=== PATIENT | female | born 1940 | race Caucasian/White ===

== ENCOUNTER → 2019-04-28 | Outpatient (CLI) | payer MEDICARE ==
[~2019-04-28] MED LIST: CONTRAST GIVEN. MC PRN; IOHEXOL 300 MG/ML 50 ML VIAL. PO ONE
--- NOTE | 2019-04-28 13:57 | RAD ---
CT abdomen pelvis with oral contrast only Indication: Left lower quadrant pain for 2 months Technique: Noncontrast CT imaging was performed of the abdomen pelvis, multiplanar reconstruction images submitted. Oral contrast was given. One or more of the following individualized dose reduction techniques were utilized for this examination: 1. Automated exposure control 2. Adjustment of the mA and/or kV according to patient size 3. Use of iterative reconstruction technique. Comparison: None Findings: There is some motion degradation. There is some coronary calcification. Accurate evaluation of the abdominal visceral organs is limited without intravenous contrast, no obvious focal abnormality of the liver, spleen, pancreas allowing for noncontrast technique. There is no adrenal nodularity. There has been cholecystectomy. There is no hydronephrosis or renal calculus. Nondilated ureters are poorly distinguished in the pelvis. There are some phleboliths present. Bowel is not significantly dilated. There is prominent retained stool greatest of the ascending through transverse colon. Appendix is dilated about 0.9 cm with some internal stool density present, no adjacent inflammatory-type change. There is advanced degenerative disc disease at L4-5 and to lesser degree at L3-4. There is multilevel facet hypertrophic change. There is suspected moderate to severe spinal stenosis L3-4, also degree of lateral recess stenosis bilaterally at L4-5 and L5-S1. There is moderate to severe narrowing of the bilateral L4-5 neural foramen in part by facets. IMPRESSION: 1. There is prominent retained stool greatest of the ascending and transverse colon, no significant inflammatory type change about the bowel. While the appendix is dilated about 0.9 cm, there is internal stool density present and there is no adjacent inflammatory-type change to confidently suggest acute appendicitis. Nondilated ureters are poorly seen in the pelvis, no hydronephrosis or renal calculus. 2. There is lumbar degenerative disc disease greatest at L4-5 and to lesser degree at L3-4. There is suspected moderate to severe spinal stenosis L3-4, other variable lateral recess stenosis. There is bilateral L4-5 neural foramina compromise. Electronically signed by: Jimbo Vitale MD (04/28/2019 1:54 PM) [email or web address]
== END | disposition home or self-care (01) ==
LOC: CT 09:50
PROVIDERS: ATTEND Family Medicine
DX: I87.8 Other specified disorders of veins (principal); I25.10 Atherosclerotic heart disease of native coronary artery without angina pectoris; K59.00 Constipation, unspecified; M51.36 Other intervertebral disc degeneration, lumbar region; M89.38 Hypertrophy of bone, other site; M48.061 Spinal stenosis, lumbar region without neurogenic claudication; Z90.49 Acquired absence of other specified parts of digestive tract
CPT/HCPCS: 74176

== ENCOUNTER → 2019-10-20 | Outpatient (CLI) | payer MEDICARE ==
--- NOTE | 2019-10-20 13:51 | KCIC ---
RS Compliance Statement: One or more of the following individualized dose reduction techniques were utilized for this examination: 1. Automated exposure control 2. Adjustment of the mA and/or kV according to patient size 3. Use of iterative reconstruction technique CT head without contrast 10/20/2019 1:14 PM INDICATION: Confusion, memory changes COMPARISON: None available TECHNIQUE: Multiple axial CT images of the head were obtained from skull base through the vertex without intravenous contrast. FINDINGS: Head: Ventricles, sulci and basal cisterns are within normal limits. There is no hydrocephalus. Giraldo-white matter differentiation is normal. There is no acute intracranial hemorrhage. There is no mass, mass effect or midline shift. Posterior fossa is normal in appearance. Visualized portions of the orbits are normal with exception of left lens replacement. Minimal mucosal thickening in the right sphenoid sinus. Mastoid air cells are well aerated. Scalp and calvaria are normal. IMPRESSION: No acute intracranial hemorrhage. Electronically signed by: Amanda Acosta MD (10/20/2019 1:48 PM) [email or web address]
== END | disposition home or self-care (01) ==
LOC: KCIC CT 13:06
PROVIDERS: ATTEND Family Medicine
DX: J34.89 Other specified disorders of nose and nasal sinuses (principal); R41.0 Disorientation, unspecified
CPT/HCPCS: 70450

== ENCOUNTER 2020-11-15 10:46 | Inpatient (IN) | payer MEDICARE ==
[~2020-11-15] VITALS: Ht 152.4 cm; Wt 72.6 kg
[2020-11-15] MEDS ORDERED: IV NORMAL SALINE 1000ML BAG 1,000 ML IV ONE ×2 (11:45→16:00)
[2020-11-15 11:58] LABS: BASO % 1 % (0-3); EOS # 0.1 x10^3/uL (0.0-0.7); EOS % 2 % (0-3); HEMATOCRIT 38.9 % (36.0-47.0); HEMOGLOBIN 13.5 g/dL (12.0-15.5); LYMPH # 1.1 x10^3/uL (1.0-4.8); LYMPH % 24 % (24-48); MEAN CORPUSCULAR HEMOGLOBIN 33 pg (25-35); MEAN CORPUSCULAR HGB CONC 35 g/dL (31-37); MEAN CORPUSCULAR VOLUME 93 fL (79-100); MONO # 0.3 x10^3/uL (0.0-1.1); MONO % 8 % (0-9); NEUT # 2.9 x10^3/uL (1.8-7.7); NEUT % 66 % (31-73); PLATELET COUNT 264 x10^3/uL (140-400); RED BLOOD COUNT 4.17 x10^6/uL (3.50-5.40); RED CELL DISTRIBUTION WIDTH 13.3 % (11.5-14.5); WHITE BLOOD COUNT 4.4 x10^3/uL (4.0-11.0)
--- NOTE | 2020-11-15 12:03 | PHYS DOC ---
Past Medical History Past Medical History: Anxiety, Depression, Fibromyalgia, Glaucoma, Hypothyroid, Other Additional Past Medical Histor: "MENTAL HEALTH/PSYCHOTIC EPISODES" PER DAUGHTER Past Surgical History: Other Additional Past Surgical Histo: UNKNOWN Smoking Status: Never Smoker Alcohol Use: None General Adult EDM: Chief Complaint: HALLUCINATIONS AUDIBLE/VISUAL HPI: HPI: Patient is a 80 year old female who who presents with CC catatonic episodes. Hx from daughter who is bedside and cares for the Pt. Daughter describes daily catatonic episodes/bradykinesia that have increased in frequency over the past two weeks. Pt has been eating and drinking fluids minimally despite daughters best efforts. Daughter also describes generalized cognitive decline over the past two weeks. Pt has not "made any sense" verbally for the past week per daughter. Pt does have a hx of depression but the movement symptoms have never happened before. The Pt's has had some recent health problems and daughter does think that this is contributing. Pt follows with psychiatry. No resting/intention tremors per daughter. Review of Systems: Review of Systems: Constitutional: Denies fever or chills Eyes: Denies redness or eye pain HENT: Denies nasal congestion or sore throat Respiratory: Denies cough or shortness of breath Cardiovascular: Denies chest pain or palpitations GI: Denies abdominal pain, nausea, or vomiting : Denies dysuria or hematuria Musculoskeletal: Denies back pain or joint pain Integument: Denies rash or skin lesions Neurologic: Denies headache, focal weakness or sensory changes Complete systems were reviewed and found to be within normal limits, except as documented in this note. Heart Score: Risk Factors: Risk Factors: DM, Current or recent (<one month) smoker, HTN, HLP, family history of CAD, obesity. Risk Scores: Score 0 - 3: 2.5% MACE over next 6 weeks - Discharge Home Score 4 - 6: 20.3% MACE over next 6 weeks - Admit for Clinical Observation Score 7 - 10: 72.7% MACE over next 6 weeks - Early Invasive Strategies Current Medications: Current Medications Medications (Trade) Dose Ordered Sig/Álvaro Start Time Stop Time Status Last Admin Dose Admin Sodium Chloride 1,000 ml @ 1,000 mls/hr 1X ONCE 11/15/20 11:45 11/15/20 12:44 Allergies: Allergies: Allergies Coded Allergies Type Severity Reaction Last Updated Verified No Known Drug Allergies 04/28/19 No Physical Exam: PE: Constitutional: Well developed, well nourished, no acute distress, non-toxic appearance HENT: Normocephalic, atraumatic, Mucous membranes dry Eyes: PERRL, EOMI, conjunctiva normal, Neck: Normal range of motion, no tenderness, supple Lungs & Thorax: No respiratory distress, equal chest rise and fall Abdomen: Soft, no tenderness Skin: Warm, dry, no erythema, no rash Back: No tenderness, no CVA tenderness Extremities: No tenderness, ROM intact, no edema Neurologic: Alert and oriented X 1, Psychologic: Inhibited affect Current Patient Data: Vital Signs: Vital Signs Date Time Temp Pulse Resp B/P (MAP) Pulse Ox O2 Delivery O2 Flow Rate FiO2 11/15/20 10:57 97.9 81 24 170/72 (104) 100 Room Air 97.9 EKG: EKG: Sinus Rhythm. Left [place] Deviation. QTc:481[] Radiology/Procedures: Radiology/Procedures: PROCEDURE: CHEST AP ONLY EXAM: XR CHEST 1V 11/15/2020 2:08 PM CLINICAL INDICATION: Altered mental status COMPARISON: None TECHNIQUE: AP supine view of the chest FINDINGS: The heart and mediastinum are normal. There are calcifications in the thoracic aorta. Lungs are adequately expanded. No focal opacity, pleural effusion, or pneumothorax. No acute osseous abnormality. IMPRESSION: No acute cardiopulmonary abnormality. Electronically signed by: Hallie Strong MD (11/15/2020 2:37 PM) [id number] PROCEDURE: CT HEAD WO CONTRAST EXAM: CT head without contrast INDICATION: Altered mental status COMPARISON: CT head 10/20/2019 TECHNIQUE: Axial CT imaging through the head without intravenous contrast. One or more of the following individualized dose reduction techniques were utilized for this examination: 1. Automated exposure control 2. Adjustment of the mA and/or kV according to patient size 3. Use of iterative reconstruction technique. FINDINGS: The ventricles and sulci are mildly enlarged, reflecting age-related volume loss. Kaufman-white matter differentiation is maintained. There is no intracranial hemorrhage, acute infarct, or mass lesion. Basal cisterns are clear. The skull and scalp are intact. The visualized paranasal sinuses and mastoid air cells are clear. Globes and orbits are intact. IMPRESSION: 1. No acute intracranial abnormality. 2. Unchanged mild volume loss. Electronically signed by: Hallie Strong MD (11/15/2020 2:39 PM) [id number] [] Course & Med Decision Making: Course & Med Decision Making CPt presented to the ED with CC Catatonic episodes/Bradykinesia and generalized cognitive decline over the past two weeks. Pt has not been eating or drinking despite best intentions by daughter. Volume resuscitation with IV NS. CXR/Head Ct w/o contrast showing no acute abnormality. Admit for fluid resuscitation and malnutrition. Once medically cleared, f/u with psychiatry Dragon Disclaimer: Valdemar Disclaimer: This electronic medical record was generated, in whole or in part, using a voice recognition dictation system. Departure Departure Impression: Primary Impression: Dehydration Additional Impressions: Hallucinations Acute renal insufficiency Hypokalemia Disposition: ADMITTED INPT THIS HOSP Admitting Physician: ESMER Mukherjee) Condition: STABLE Referrals: PATTI COLLINS MD (PCP) PATTI PRINGLE DO Nov 15, 2020 12:03
[2020-11-15 12:06] LABS: BARBITURATES NEG (NEG); BENZODIAZEPINES POS (NEG); CANNABINOIDS NEG (NEG); COCAINE NEG (NEG); METHADONE NEG (NEG); OPIATES NEG (NEG); PHENCYCLIDINE NEG (NEG)
[2020-11-15 12:12] LABS: AMPHETAMINE/METHAMPHETAMINE NEG (NEG)
[2020-11-15 12:18] LABS: BILIRUBIN,URINE SMALL (NEG); CLARITY,URINE CLEAR; COLOR,URINE YELLOW; NITRITE,URINE NEGATIVE (NEG); PROTEIN,URINE NEGATIVE (NEG-TRACE); UROBILINOGEN,URINE 0.2 mg/dL (0.2 mg/dL)
[2020-11-15 12:20] LABS: CALCIUM 9.7 mg/dL (8.5-10.1); CREATININE 1.2 mg/dL (0.6-1.0); GFR 43.4; POTASSIUM 3.2 mmol/L (3.5-5.1)
[2020-11-15 12:24] LABS: ACETAMIN < 2 mcg/ml (10-30); SALIC < 2.8 mg/dL (2.8-20.0)
[2020-11-15 12:25] LABS: ALBUMIN/GLOBULIN RATIO 1.4 (1.0-1.7); ETHANOL < 10 mg/dL (0-10); MAGNESIUM 2.1 mg/dL (1.8-2.4); TOTAL BILIRUBIN 0.7 mg/dL (0.2-1.0); TOTAL PROTEIN 6.9 g/dL (6.4-8.2)
[2020-11-15 12:31] LABS: CREATINE KINASE 45 U/L (26-192)
[2020-11-15 12:35] LABS: AMORPHOUS SEDIMENT,UR PRESENT /HPF; BACTERIA,URINE 0 /HPF (0-FEW); RBC,URINE 0 /HPF (0-2); WBC,URINE 0 /HPF (0-4)
--- NOTE | 2020-11-15 14:40 | RAD ---
EXAM: XR CHEST 1V 11/15/2020 2:08 PM CLINICAL INDICATION: Altered mental status COMPARISON: None TECHNIQUE: AP supine view of the chest FINDINGS: The heart and mediastinum are normal. There are calcifications in the thoracic aorta. Lung s are adequately expanded. No focal opacity, pleural effusion, or pneumothorax. No acute osseous abno rmality. IMPRESSION: No acute cardiopulmonary abnormality. Electronically signed by: Hallie Strong MD (11/15/2020 2:37 PM) [id number]
--- NOTE | 2020-11-15 14:42 | RAD ---
EXAM: CT head without contrast INDICATION: Altered mental status COMPARISON: CT head 10/20/2019 TECHNIQUE: Axial CT imaging through the head without intravenous contrast. One or more of the following individualized dose reduction techniques were utilized for this examinat ion: 1. Automated exposure control 2. Adjustment of the mA and/or kV according to patient size 3. Use of iterative reconstruction technique. FINDINGS: The ventricles and sulci are mildly enlarged, reflecting age-related volume loss. Kaufman-white matter d ifferentiation is maintained. There is no intracranial hemorrhage, acute infarct, or mass lesion. Bas al cisterns are clear. The skull and scalp are intact. The visualized paranasal sinuses and mastoid air cells are clear. Mary Jane bes and orbits are intact. IMPRESSION: 1. No acute intracranial abnormality. 2. Unchanged mild volume loss. Electronically signed by: Hallie Strong MD (11/15/2020 2:39 PM) [id number]
[2020-11-15] MEDS ORDERED: ONDANSETRON PF 4 MG/2 ML VIAL. IV PRN (16:00)
--- NOTE | 2020-11-15 16:25 | PDOC1 ---
History and Physical Date of Service: DOS: DATE: 11/15/20 TIME: 16:22 Chief Complaint: Chief Complain: Hallucinations History of Present Illness: HPI: Patient is a 80-year-old female who presents with hallucinatory episodes. History is obtained from the son. Web Applications Programmer is the daughter but she is not present. Son states for the past few years patient has had depressive episodes which required hospitalization. Daughter does describe daily catatonic episodes/bradykinesia that have increased in frequency over the past 2 weeks. Although, family has stated that this has happened in the past this has definitely gotten worse in the past 2 weeks. Patient also has been eating and drinking fluids minimally despite daughters efforts to increase her p.o. intake. Son would describe episodes that the patient would speak nonsensically to herself and she would have some foot tapping. Denies any tardive dyskinesia, lip smacking, or writhing hand movements. Son states that of the patient had some lung cancer that required chemoradiation and this may be contributing to the patient's symptoms. Patient does take olanzapine, carbamazepine, Xanax and does follow with a psychiatrist. Denies SI or HI, fevers, abdominal pain, diarrhea, chest pain or shortness of breath. . Past Medical/Surgical History: PMH/PSH: Past Medical History: Anxiety, Depression, Fibromyalgia, Glaucoma, Hypothyroid, "MENTAL HEALTH/PSYCHOTIC EPISODES" PER DAUGHTER Past Surgical History: Allergies: Allergies: Coded Allergies: No Known Drug Allergies (Unverified , 04/28/19) Family History: Family History: Reviewed and no relevant findings Social History: Social History: Smoking Status: Never Smoker Alcohol Use: None Current Medications: Current Medications Current Medications Sodium Chloride 1,000 ml @ 1,000 mls/hr 1X ONCE IV Last administered on 11/15/20at 12:14; Start 11/15/20 at 11:45; Stop 11/15/20 at 12:44; Status DC Ondansetron HCl (Zofran) 4 mg PRN Q8HRS PRN IV NAUSEA/VOMITING; Start 11/15/20 at 16:00; Stop 11/16/20 at 15:59 Sodium Chloride 1,000 ml @ 100 mls/hr 1X ONCE IV Last administered on 11/15/20at 16:17; Start 11/15/20 at 16:00; Stop 11/16/20 at 01:59 Lorazepam (Ativan Inj) 0.5 mg PRN Q6HRS PRN IVP ANXIETY / AGITATION Last administered on 11/15/20at 16:17; Start 11/15/20 at 16:00 Potassium Chloride (Klor-Con) 40 meq 1X ONCE PO ; Start 11/15/20 at 16:30; Stop 11/15/20 at 16:31 ROS: Review of Systems Review of System REVIEW OF SYSTEMS: GENERAL: Denies weakness SKIN: No bruising, hair changes or rashes. EYES: No blurred, double or loss of vision. NOSE AND THROAT: No history of nosebleeds, hoarseness or sore throat. HEART: No history of palpitations, chest pain or shortness of breath on exertion. LUNGS: Denies cough, hemoptysis, wheezing or shortness of breath. GASTROINTESTINAL: Denies changes in appetite, nausea, vomiting, diarrhea or constipation. GENITOURINARY: No history of frequency, urgency, hesitancy or nocturia. NEUROLOGIC: Denies history of numbness, tingling, or tremor. PSYCHIATRIC: No history of panic, anxiety or depression. ENDOCRINE: No history of heat or cold intolerance, polyuria or polydipsia. EXTREMITIES: Denies joint pain, pain on walking or stiffness. Physical Exam: Vital Signs: Vital Signs Date Time Temp Pulse Resp B/P (MAP) Pulse Ox O2 Delivery O2 Flow Rate FiO2 11/15/20 14:31 82 143/67 (92) 98 Room Air 11/15/20 14:04 19 11/15/20 10:57 97.9 97.9 Physcial Exam: GEN: No apparent distress. Alert and oriented HEENT: Normal cephalic, atraumatic, external auditory canals are patent EYES: Extraocular muscles are intact, pupil are equally round and reactive to light and accommodation MUSCULOSKELETAL: Well developed , well nourished, good range of motion ENDOCRINE: No thyromegaly was palpated LYMPHATICS: No cervical chain or axillary nodes were noted HEMATOPOIETIC: No bruising NECK: Supple, no JVD, no thyromegaly was noted LUNGS: Clear to auscultation in all lung stringer without rhonchi or wheezing HEART: RRR, S!, S2 present. Peripheral pulses intact, no obvious murmurs noted ABDOMEN: Soft, nontender. Positive bowel sounds, no organomegaly, normal bowel sounds EXTREMITIES: Without clubbing, cyanosis, or edema. Pedal pulses intact. Negative Homans sign NEUROLOGIC: Normal speech and tone. A&O x 3, moves all extremities, no obvious focal deficits PSYCHIATRIC: Normal affect, normal mood. Stable SKIN: No ulcerations or rashes, good skin turgor, no jaundice VASCULAR: Good capillary refill, neurovascular bundle appears to be intact Labs: Labs: Laboratory Tests Test 11/15/20 11:10 11/15/20 11:18 11/15/20 12:30 11/15/20 14:56 Urine Collection Type U cath Urine Color Yellow Urine Clarity Clear Urine pH 6.0 (<5.0-8.0) Urine Specific United 1.015 (1.000-1.030) Urine Protein Negative mg/dL (NEG-TRACE) Urine Glucose (UA) Negative mg/dL (NEG) Urine Ketones (Stick) Negative mg/dL (NEG) Urine Blood Negative (NEG) Urine Nitrite Negative (NEG) Urine Bilirubin Small (NEG) Urine Urobilinogen Dipstick 0.2 mg/dL (0.2 mg/dL) Urine Leukocyte Esterase Negative (NEG) Urine RBC 0 /HPF (0-2) Urine WBC 0 /HPF (0-4) Urine Amorphous Sediment Present /HPF Urine Bacteria 0 /HPF (0-FEW) Urine Opiates Screen Neg (NEG) Urine Methadone Screen Neg (NEG) Urine Barbiturates Neg (NEG) Urine Phencyclidine Screen Neg (NEG) Urine Amphetamine/Methamphetamine Neg (NEG) Urine Benzodiazepines Screen Pos (NEG) Urine Cocaine Screen Neg (NEG) Urine Cannabinoids Screen Neg (NEG) Urine Ethyl Alcohol Neg (NEG) White Blood Count 4.4 x10^3/uL (4.0-11.0) Red Blood Count 4.17 x10^6/uL (3.50-5.40) Hemoglobin 13.5 g/dL (12.0-15.5) Hematocrit 38.9 % (36.0-47.0) Mean Corpuscular Volume 93 fL (79-100) Mean Corpuscular Hemoglobin 33 pg (25-35) Mean Corpuscular Hemoglobin Concent 35 g/dL (31-37) Red Cell Distribution Width 13.3 % (11.5-14.5) Platelet Count 264 x10^3/uL (140-400) Neutrophils (%) (Auto) 66 % (31-73) Lymphocytes (%) (Auto) 24 % (24-48) Monocytes (%) (Auto) 8 % (0-9) Eosinophils (%) (Auto) 2 % (0-3) Basophils (%) (Auto) 1 % (0-3) Neutrophils # (Auto) 2.9 x10^3/uL (1.8-7.7) Lymphocytes # (Auto) 1.1 x10^3/uL (1.0-4.8) Monocytes # (Auto) 0.3 x10^3/uL (0.0-1.1) Eosinophils # (Auto) 0.1 x10^3/uL (0.0-0.7) Basophils # (Auto) 0.0 x10^3/uL (0.0-0.2) Sodium Level 142 mmol/L (136-145) Potassium Level 3.2 mmol/L (3.5-5.1) Chloride Level 101 mmol/L (98-107) Carbon Dioxide Level 24 mmol/L (21-32) Anion Gap 17 (6-14) Blood Urea Nitrogen 28 mg/dL (7-20) Creatinine 1.2 mg/dL (0.6-1.0) Estimated GFR (Cockcroft-Gault) 43.4 BUN/Creatinine Ratio 23 (6-20) Glucose Level 103 mg/dL (70-99) Calcium Level 9.7 mg/dL (8.5-10.1) Magnesium Level 2.1 mg/dL (1.8-2.4) Total Bilirubin 0.7 mg/dL (0.2-1.0) Aspartate Amino Transf (AST/SGOT) 24 U/L (15-37) Alanine Aminotransferase (ALT/SGPT) 36 U/L (14-59) Alkaline Phosphatase 75 U/L (46-116) Creatine Kinase 45 U/L (26-192) Creatine Kinase MB (Mass) 1.7 ng/mL (0.0-3.6) Creatine Kinase MB Relative Index % (0-4) Troponin I Quantitative < 0.017 ng/mL (0.000-0.055) Total Protein 6.9 g/dL (6.4-8.2) Albumin 4.0 g/dL (3.4-5.0) Albumin/Globulin Ratio 1.4 (1.0-1.7) Salicylates Level < 2.8 mg/dL (2.8-20.0) Salicylate Last Dose Date Unknown Salicylate Last Dose Time Unknown Acetaminophen Level < 2 mcg/ml (10-30) Acetaminophen Last Dose Date Unknown Acetaminophen Last Dose Time Unknown Ethyl Alcohol Level < 10 mg/dL (0-10) Lactic Acid Level 0.6 mmol/L (0.4-2.0) Ammonia 17 mcmol/L (11-34) Laboratory Tests Test 11/15/20 11:10 11/15/20 11:18 11/15/20 12:30 11/15/20 14:56 Urine Collection Type U cath Urine Color Yellow Urine Clarity Clear Urine pH 6.0 (<5.0-8.0) Urine Specific United 1.015 (1.000-1.030) Urine Protein Negative mg/dL (NEG-TRACE) Urine Glucose (UA) Negative mg/dL (NEG) Urine Ketones (Stick) Negative mg/dL (NEG) Urine Blood Negative (NEG) Urine Nitrite Negative (NEG) Urine Bilirubin Small (NEG) Urine Urobilinogen Dipstick 0.2 mg/dL (0.2 mg/dL) Urine Leukocyte Esterase Negative (NEG) Urine RBC 0 /HPF (0-2) Urine WBC 0 /HPF (0-4) Urine Amorphous Sediment Present /HPF Urine Bacteria 0 /HPF (0-FEW) Urine Opiates Screen Neg (NEG) Urine Methadone Screen Neg (NEG) Urine Barbiturates Neg (NEG) Urine Phencyclidine Screen Neg (NEG) Urine Amphetamine/Methamphetamine Neg (NEG) Urine Benzodiazepines Screen Pos (NEG) Urine Cocaine Screen Neg (NEG) Urine Cannabinoids Screen Neg (NEG) Urine Ethyl Alcohol Neg (NEG) White Blood Count 4.4 x10^3/uL (4.0-11.0) Red Blood Count 4.17 x10^6/uL (3.50-5.40) Hemoglobin 13.5 g/dL (12.0-15.5) Hematocrit 38.9 % (36.0-47.0) Mean Corpuscular Volume 93 fL (79-100) Mean Corpuscular Hemoglobin 33 pg (25-35) Mean Corpuscular Hemoglobin Concent 35 g/dL (31-37) Red Cell Distribution Width 13.3 % (11.5-14.5) Platelet Count 264 x10^3/uL (140-400) Neutrophils (%) (Auto) 66 % (31-73) Lymphocytes (%) (Auto) 24 % (24-48) Monocytes (%) (Auto) 8 % (0-9) Eosinophils (%) (Auto) 2 % (0-3) Basophils (%) (Auto) 1 % (0-3) Neutrophils # (Auto) 2.9 x10^3/uL (1.8-7.7) Lymphocytes # (Auto) 1.1 x10^3/uL (1.0-4.8) Monocytes # (Auto) 0.3 x10^3/uL (0.0-1.1) Eosinophils # (Auto) 0.1 x10^3/uL (0.0-0.7) Basophils # (Auto) 0.0 x10^3/uL (0.0-0.2) Sodium Level 142 mmol/L (136-145) Potassium Level 3.2 mmol/L (3.5-5.1) Chloride Level 101 mmol/L (98-107) Carbon Dioxide Level 24 mmol/L (21-32) Anion Gap 17 (6-14) Blood Urea Nitrogen 28 mg/dL (7-20) Creatinine 1.2 mg/dL (0.6-1.0) Estimated GFR (Cockcroft-Gault) 43.4 BUN/Creatinine Ratio 23 (6-20) Glucose Level 103 mg/dL (70-99) Calcium Level 9.7 mg/dL (8.5-10.1) Magnesium Level 2.1 mg/dL (1.8-2.4) Total Bilirubin 0.7 mg/dL (0.2-1.0) Aspartate Amino Transf (AST/SGOT) 24 U/L (15-37) Alanine Aminotransferase (ALT/SGPT) 36 U/L (14-59) Alkaline Phosphatase 75 U/L (46-116) Creatine Kinase 45 U/L (26-192) Creatine Kinase MB (Mass) 1.7 ng/mL (0.0-3.6) Creatine Kinase MB Relative Index % (0-4) Troponin I Quantitative < 0.017 ng/mL (0.000-0.055) Total Protein 6.9 g/dL (6.4-8.2) Albumin 4.0 g/dL (3.4-5.0) Albumin/Globulin Ratio 1.4 (1.0-1.7) Salicylates Level < 2.8 mg/dL (2.8-20.0) Salicylate Last Dose Date Unknown Salicylate Last Dose Time Unknown Acetaminophen Level < 2 mcg/ml (10-30) Acetaminophen Last Dose Date Unknown Acetaminophen Last Dose Time Unknown Ethyl Alcohol Level < 10 mg/dL (0-10) Lactic Acid Level 0.6 mmol/L (0.4-2.0) Ammonia 17 mcmol/L (11-34) Images: Images Negative head CT CXR Impression: 1. No acute cardiopulmonary process. Assessment/Plan Assessment/Plan Acute encephalopathy NOS Hallucinations Dehydration Cognitive impairment worsening CHUCK due to vasomotor nephropathy Hypokalemia Depression Acute delirium or confusional state due to infectious versus toxic versus metabolic disturbance No obvious centrally acting medications currently. No obvious signs of infection on physical exam. No fevers or nuchal rigidity. CT head is negative for acute etiology. No history or signs of trauma Psych consult Pending TSH, B12, folate levels Pending urine toxic drug screen Consider dementia prevention protocol Provide adequate lighting (open curtains during the day, turn the lights off at night) Provide frequent personal contact with family, friends, and staff or TV Encourage early and frequent mobilization PT OT IV Haldol as needed for agitation, consider sitter as needed if non-redirectable agitation Avoid physical restraints, catheters or tubes, and benzodiazepines Nutrition consult if there is malnutrition or concern for vitamin deficiencies Continue IV fluids Lovenox for DVT prophylaxis Cardiac diet Full code Discussed with RN and SW Dispo pending psych consult MPOA: Daughter Justifications for Admission Other Justification SAMSON FOWLER MD Nov 15, 2020 16:25
[2020-11-15] MEDS ORDERED: POTASSIUM CHLORIDE 20 MEQ TABLET.ER. PO ONE (16:30)
[2020-11-15] MEDS ORDERED: DEXTROSE 50% 25 GM / 50ML DISP.SYRIN. IV PRN (17:45)
[2020-11-15] MEDS ORDERED: ONDANSETRON PF 4 MG/2 ML VIAL. IVP PRN (17:45)
[2020-11-15] MEDS ORDERED: ACETAMINOPHEN 325 MG TABLET. PO PRN (17:45)
[2020-11-15] MEDS ORDERED: SENNOSIDES 8.6 MG TABLET PO PRN (17:45)
[2020-11-15] MEDS ORDERED: DOCUSATE SODIUM 100 MG CAPSULE. PO PRN (17:45)
[2020-11-15 18:35] VITALS: BP 175/45
[2020-11-15 19:29] VITALS: BP 153/40
--- NOTE | 2020-11-15 19:30 | NUR ---
The patient, JACQUES RANDALL, 80 y/o, F admitted by SAMSON FOWLER MD, was given written information regarding hospital policies, unit procedures and contact persons. Valuables were checked and all admission questions answered by pt's daughter as pt mainly only speaks kazakh. Permission granted for daughter to spend the night. Will continue to monitor.
[2020-11-15] MEDS ORDERED: SERT50TA PO (19:54)
[2020-11-15] MEDS ORDERED: CARB200T4 PO (19:54)
[2020-11-15] MEDS ORDERED: CARB100C4 PO (19:54)
[2020-11-15] MEDS ORDERED: HYDR12.58 PO (19:58)
[2020-11-15] MEDS ORDERED: OLAN10TA9 PO (19:58)
[2020-11-15] MEDS ORDERED: LEVO75TA5 PO (19:58)
[2020-11-15] MEDS ORDERED: ALPR0.254 PO (19:58)
[2020-11-15] MEDS ORDERED: DORZ10DR7 EACHEYE (19:58)
--- NOTE | 2020-11-15 20:52 | PDOC1 ---
History & Psych Evaluation Date of Service: DOS: DATE: 11/15/20 TIME: 20:31 Source: Source: Caregiver, Chart review, Patient Identification: Identification 80-year-old female admitted with altered mental status, and declining mental health. Chief Complaint: Chief Complaint Hallucinations, paranoia, nonsensical speech, depression and anxiety History of Present Illness: HPI: She is a 80-year-old female of [place] descent admitted with altered mental status and declining mental health. She is not able to communicate in Surinamese, assisted by her daughter who is also patient's caregiver. Most of the information is obtained from daughter. During interview, patient was talking irrelevantly and Thai, with consistently staring spells. According to the information provided, patient has been struggling with bipolar mood disorder for years, was on lithium for a long time. Lately, she has been more depressed and anxious, especially for the last 1 month her mental health has been declining. She was reportedly having weird behavior, nonsensical talks, irrelevantly talking in detail in language, catatonic posturing or staring or rocking on chair consistently. She also reportedly having perseveration and ruminations. Daughter reported that patient was also repeating phrases which were not relevant. She was on sertraline, Xanax, and carbamazepine. Reporting worsening depression and anxiety. At times, she gets extremely nervous and [id number]. She also looking for someone when in her room. Reportedly have paranoia that someone spying on her. History of hallucinations or reaction to internal stimuli, looking her following someone who is not there. Denies suicidal or homicidal threats. Past Psychiatric History: History of bipolar mood disorder depression and anxiety. She was admitted twice in [facility] long time ago. No psychiatric hospital admission in years. Past Medical History: Please see medical chart for details. Family History: Sister who is 10-year-old who then patient recently diagnosed with dementia Social History: Social History: She lives with her who is diagnosed with cancer. Daughter also relates her mental decline to recent diagnosis of cancer in her . Daughter is a shipping and receiving weigher. Current Medications: Current Medications Current Medications Medications (Trade) Dose Ordered Sig/Álvaro Start Time Stop Time Status Last Admin Dose Admin Acetaminophen (Tylenol) 650 mg PRN Q4HRS PRN 11/15/20 17:45 Dextrose (Dextrose 50%-Water Syringe) 12.5 gm PRN Q15MIN PRN 11/15/20 17:45 Docusate Sodium (Colace) 100 mg PRN DAILY PRN 11/15/20 17:45 Enoxaparin Sodium (Lovenox 30mg Syringe) 30 mg Q24H 11/16/20 09:00 Lorazepam (Ativan Inj) 0.5 mg PRN Q6HRS PRN 11/15/20 16:00 11/15/20 16:17 0.5 MG Ondansetron HCl (Zofran) 4 mg PRN Q6HRS PRN 11/15/20 17:45 Potassium Chloride (Klor-Con) 40 meq 1X ONCE 11/15/20 16:30 11/15/20 16:31 DC 11/15/20 16:29 40 MEQ Sennosides (Senna) 17.2 mg PRN BID PRN 11/15/20 17:45 Sodium Chloride 1,000 ml @ 100 mls/hr Q10H 11/15/20 17:45 Allergies: Allergies: Coded Allergies: No Known Drug Allergies (Unverified , 04/28/19) Mental Status Examination: Mental Status Examination 80-year-old female of Thai descent Not very cooperative due to language barrier Disoriented Disorganized thought process Denies suicidal or homicidal thoughts Denies auditory or visual hallucinations. Reacting to internal stimuli Paranoid Mood is depressed Affect is dysthymic Insight is poor Judgment is poor Impulse control is poor Attention span and concentration impaired Recent and remote memory impaired ROS: 14 point review of system is otherwise negative except for stated above Physical Exam: Refer to Physician's note. HAND II TUBE BENDER: No focal deficit MSK: No EPS, TDK, or abnormal involuntary movements Vitals: Vitals Vital Signs Date Time Temp Pulse Resp B/P (MAP) Pulse Ox O2 Delivery O2 Flow Rate FiO2 11/15/20 19:29 97.3 82 18 153/40 (77) 97 Room Air 97.3 Labs: Labs Laboratory Tests Test 11/15/20 11:10 11/15/20 11:18 11/15/20 12:30 11/15/20 14:56 Urine Collection Type U cath Urine Color Yellow Urine Clarity Clear Urine pH 6.0 (<5.0-8.0) Urine Specific [place] 1.015 (1.000-1.030) Urine Protein Negative mg/dL (NEG-TRACE) Urine Glucose (UA) Negative mg/dL (NEG) Urine Ketones (Stick) Negative mg/dL (NEG) Urine Blood Negative (NEG) Urine Nitrite Negative (NEG) Urine Bilirubin Small (NEG) Urine Urobilinogen Dipstick 0.2 mg/dL (0.2 mg/dL) Urine Leukocyte Esterase Negative (NEG) Urine RBC 0 /HPF (0-2) Urine WBC 0 /HPF (0-4) Urine Amorphous Sediment Present /HPF Urine Bacteria 0 /HPF (0-FEW) Urine Opiates Screen Neg (NEG) Urine Methadone Screen Neg (NEG) Urine Barbiturates Neg (NEG) Urine Phencyclidine Screen Neg (NEG) Urine Amphetamine/Methamphetamine Neg (NEG) Urine Benzodiazepines Screen Pos (NEG) Urine Cocaine Screen Neg (NEG) Urine Cannabinoids Screen Neg (NEG) Urine Ethyl Alcohol Neg (NEG) White Blood Count 4.4 x10^3/uL (4.0-11.0) Red Blood Count 4.17 x10^6/uL (3.50-5.40) Hemoglobin 13.5 g/dL (12.0-15.5) Hematocrit 38.9 % (36.0-47.0) Mean Corpuscular Volume 93 fL (79-100) Mean Corpuscular Hemoglobin 33 pg (25-35) Mean Corpuscular Hemoglobin Concent 35 g/dL (31-37) Red Cell Distribution Width 13.3 % (11.5-14.5) Platelet Count 264 x10^3/uL (140-400) Neutrophils (%) (Auto) 66 % (31-73) Lymphocytes (%) (Auto) 24 % (24-48) Monocytes (%) (Auto) 8 % (0-9) Eosinophils (%) (Auto) 2 % (0-3) Basophils (%) (Auto) 1 % (0-3) Neutrophils # (Auto) 2.9 x10^3/uL (1.8-7.7) Lymphocytes # (Auto) 1.1 x10^3/uL (1.0-4.8) Monocytes # (Auto) 0.3 x10^3/uL (0.0-1.1) Eosinophils # (Auto) 0.1 x10^3/uL (0.0-0.7) Basophils # (Auto) 0.0 x10^3/uL (0.0-0.2) Sodium Level 142 mmol/L (136-145) Potassium Level 3.2 mmol/L (3.5-5.1) Chloride Level 101 mmol/L (98-107) Carbon Dioxide Level 24 mmol/L (21-32) Anion Gap 17 (6-14) Blood Urea Nitrogen 28 mg/dL (7-20) Creatinine 1.2 mg/dL (0.6-1.0) Estimated GFR (Cockcroft-Gault) 43.4 BUN/Creatinine Ratio 23 (6-20) Glucose Level 103 mg/dL (70-99) Calcium Level 9.7 mg/dL (8.5-10.1) Magnesium Level 2.1 mg/dL (1.8-2.4) Total Bilirubin 0.7 mg/dL (0.2-1.0) Aspartate Amino Transf (AST/SGOT) 24 U/L (15-37) Alanine Aminotransferase (ALT/SGPT) 36 U/L (14-59) Alkaline Phosphatase 75 U/L (46-116) Creatine Kinase 45 U/L (26-192) Creatine Kinase MB (Mass) 1.7 ng/mL (0.0-3.6) Creatine Kinase MB Relative Index % (0-4) Troponin I Quantitative < 0.017 ng/mL (0.000-0.055) Total Protein 6.9 g/dL (6.4-8.2) Albumin 4.0 g/dL (3.4-5.0) Albumin/Globulin Ratio 1.4 (1.0-1.7) Vitamin B12 Level 436 pg/mL (247-911) Thyroid Stimulating Hormone (TSH) 1.089 uIU/mL (0.358-3.74) Salicylates Level < 2.8 mg/dL (2.8-20.0) Salicylate Last Dose Date Unknown Salicylate Last Dose Time Unknown Acetaminophen Level < 2 mcg/ml (10-30) Acetaminophen Last Dose Date Unknown Acetaminophen Last Dose Time Unknown Ethyl Alcohol Level < 10 mg/dL (0-10) Lactic Acid Level 0.6 mmol/L (0.4-2.0) Ammonia 17 mcmol/L (11-34) Laboratory Tests Test 11/15/20 11:10 11/15/20 11:18 11/15/20 12:30 11/15/20 14:56 Urine Collection Type U cath Urine Color Yellow Urine Clarity Clear Urine pH 6.0 (<5.0-8.0) Urine Specific [place] 1.015 (1.000-1.030) Urine Protein Negative mg/dL (NEG-TRACE) Urine Glucose (UA) Negative mg/dL (NEG) Urine Ketones (Stick) Negative mg/dL (NEG) Urine Blood Negative (NEG) Urine Nitrite Negative (NEG) Urine Bilirubin Small (NEG) Urine Urobilinogen Dipstick 0.2 mg/dL (0.2 mg/dL) Urine Leukocyte Esterase Negative (NEG) Urine RBC 0 /HPF (0-2) Urine WBC 0 /HPF (0-4) Urine Amorphous Sediment Present /HPF Urine Bacteria 0 /HPF (0-FEW) Urine Opiates Screen Neg (NEG) Urine Methadone Screen Neg (NEG) Urine Barbiturates Neg (NEG) Urine Phencyclidine Screen Neg (NEG) Urine Amphetamine/Methamphetamine Neg (NEG) Urine Benzodiazepines Screen Pos (NEG) Urine Cocaine Screen Neg (NEG) Urine Cannabinoids Screen Neg (NEG) Urine Ethyl Alcohol Neg (NEG) White Blood Count 4.4 x10^3/uL (4.0-11.0) Red Blood Count 4.17 x10^6/uL (3.50-5.40) Hemoglobin 13.5 g/dL (12.0-15.5) Hematocrit 38.9 % (36.0-47.0) Mean Corpuscular Volume 93 fL (79-100) Mean Corpuscular Hemoglobin 33 pg (25-35) Mean Corpuscular Hemoglobin Concent 35 g/dL (31-37) Red Cell Distribution Width 13.3 % (11.5-14.5) Platelet Count 264 x10^3/uL (140-400) Neutrophils (%) (Auto) 66 % (31-73) Lymphocytes (%) (Auto) 24 % (24-48) Monocytes (%) (Auto) 8 % (0-9) Eosinophils (%) (Auto) 2 % (0-3) Basophils (%) (Auto) 1 % (0-3) Neutrophils # (Auto) 2.9 x10^3/uL (1.8-7.7) Lymphocytes # (Auto) 1.1 x10^3/uL (1.0-4.8) Monocytes # (Auto) 0.3 x10^3/uL (0.0-1.1) Eosinophils # (Auto) 0.1 x10^3/uL (0.0-0.7) Basophils # (Auto) 0.0 x10^3/uL (0.0-0.2) Sodium Level 142 mmol/L (136-145) Potassium Level 3.2 mmol/L (3.5-5.1) Chloride Level 101 mmol/L (98-107) Carbon Dioxide Level 24 mmol/L (21-32) Anion Gap 17 (6-14) Blood Urea Nitrogen 28 mg/dL (7-20) Creatinine 1.2 mg/dL (0.6-1.0) Estimated GFR (Cockcroft-Gault) 43.4 BUN/Creatinine Ratio 23 (6-20) Glucose Level 103 mg/dL (70-99) Calcium Level 9.7 mg/dL (8.5-10.1) Magnesium Level 2.1 mg/dL (1.8-2.4) Total Bilirubin 0.7 mg/dL (0.2-1.0) Aspartate Amino Transf (AST/SGOT) 24 U/L (15-37) Alanine Aminotransferase (ALT/SGPT) 36 U/L (14-59) Alkaline Phosphatase 75 U/L (46-116) Creatine Kinase 45 U/L (26-192) Creatine Kinase MB (Mass) 1.7 ng/mL (0.0-3.6) Creatine Kinase MB Relative Index % (0-4) Troponin I Quantitative < 0.017 ng/mL (0.000-0.055) Total Protein 6.9 g/dL (6.4-8.2) Albumin 4.0 g/dL (3.4-5.0) Albumin/Globulin Ratio 1.4 (1.0-1.7) Vitamin B12 Level 436 pg/mL (247-911) Thyroid Stimulating Hormone (TSH) 1.089 uIU/mL (0.358-3.74) Salicylates Level < 2.8 mg/dL (2.8-20.0) Salicylate Last Dose Date Unknown Salicylate Last Dose Time Unknown Acetaminophen Level < 2 mcg/ml (10-30) Acetaminophen Last Dose Date Unknown Acetaminophen Last Dose Time Unknown Ethyl Alcohol Level < 10 mg/dL (0-10) Lactic Acid Level 0.6 mmol/L (0.4-2.0) Ammonia 17 mcmol/L (11-34) Diagnosis: Diagnosis: Altered mental status likely to delirium, hypoactive, etiology undetermined 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 Apparently CT scan is without any abnormality. Would recommend neurology consult for further assessment. Meanwhile, Ativan challenge can be given to assess for catatonia as history is consistent with eight. Presently, patient appears catatonic with the staring spells and irrelevant speech. Plan: Recommending Ativan challenge 1 mg three times a day to assess the response. Neurology consult, MRI brain. Psychoeducation provided. Continue Zyprexa. Avoid Xanax. Discussed catatonia and treatment plan with daughter in detail. She is in agreement with plan and expressed understanding. ELENA GUNTER MD Nov 15, 2020 20:52
[2020-11-15] MEDS ORDERED: LORazepam 0.5 MG TABLET PO PRN (21:00)
[2020-11-15] MEDS: OLANZapine 5 MG TABLET PO SCH (21:11)
[2020-11-15] MEDS: IV NORMAL SALINE 1000ML BAG 1,000 ML IV SCH (21:12)
[2020-11-15 23:05] VITALS: BP 109/37
[2020-11-16] VITALS (7 sets, daily range): BP systolic 9–148; BP diastolic 35–56
[2020-11-16 07:47] LABS: BASO % 0 % (0-3); EOS # 0.1 x10^3/uL (0.0-0.7); EOS % 3 % (0-3); HEMOGLOBIN 11.9 g/dL (12.0-15.5); LYMPH # 1.1 x10^3/uL (1.0-4.8); LYMPH % 32 % (24-48); MEAN CORPUSCULAR HEMOGLOBIN 34 pg (25-35); MEAN CORPUSCULAR HGB CONC 35 g/dL (31-37); MEAN CORPUSCULAR VOLUME 96 fL (79-100); MONO # 0.3 x10^3/uL (0.0-1.1); MONO % 8 % (0-9); NEUT # 2.1 x10^3/uL (1.8-7.7); NEUT % 58 % (31-73); PLATELET COUNT 213 x10^3/uL (140-400); RED BLOOD COUNT 3.55 x10^6/uL (3.50-5.40); RED CELL DISTRIBUTION WIDTH 13.1 % (11.5-14.5); WHITE BLOOD COUNT 3.6 x10^3/uL (4.0-11.0)
[2020-11-16 08:15] LABS: CALCIUM 8.3 mg/dL (8.5-10.1); GFR 53.6; MAGNESIUM 1.9 mg/dL (1.8-2.4); PHOSPHORUS 2.9 mg/dL (2.6-4.7); POTASSIUM 3.2 mmol/L (3.5-5.1)
[2020-11-16] MEDS: IV NORMAL SALINE 1000ML BAG 1,000 ML IV SCH ×2 (08:40→14:42)
[2020-11-16] MEDS ORDERED: ENOXAPARIN 30 MG/0.3 ML SYRINGE. SQ SCH (09:00)
--- NOTE | 2020-11-16 10:28 | PDOC ---
[employer] PROGRESS NOTE Date of Service DOS: DATE: 11/16/20 TIME: 10:20 Chief Complaint Chief Complaint Acute encephalopathy NOS Acute delirium due to infection vs toxic vs metabolic disturbance vs psychologic disturbance Hallucinations Catatonia Dehydration Cognitive impairment worsening CHUCK due to vasomotor nephropathy Hypokalemia Elevated BUN and Cr Anemia Leukopenia Depression History of Present Illness History of Present Illness 11/16 Patient seen and examined today Discussed with RN Discussed with Hot Head Machine Operator Discussed with daughter Soila Patient needs daughter as commercial agent Resting comfortably and quietly Patient appears calm daughter states patient "believes she is having a baby" Vitals/I&O Vitals/I&O: Vital Signs Date Time Temp Pulse Resp B/P (MAP) Pulse Ox O2 Delivery O2 Flow Rate FiO2 11/16/20 07:00 98.1 68 18 111/50 (70) 95 Room Air 98.1 I & O 11/15/20 11/15/20 11/16/20 15:00 23:00 07:00 Intake Total 1000 ml 1050 ml 50 ml Balance 1000 ml 1050 ml 50 ml Physical Exam General: Alert, Other Heart: Regular rate, No murmurs Lungs: Clear Abdomen: Soft, No tenderness Extremities: No clubbing, No cyanosis Skin: No rashes, No breakdown Labs Labs: Laboratory Tests Test 11/15/20 11:10 11/15/20 11:18 11/15/20 12:30 11/15/20 14:56 Urine Collection Type U cath Urine Color Yellow Urine Clarity Clear Urine pH 6.0 (<5.0-8.0) Urine Specific [place] 1.015 (1.000-1.030) Urine Protein Negative mg/dL (NEG-TRACE) Urine Glucose (UA) Negative mg/dL (NEG) Urine Ketones (Stick) Negative mg/dL (NEG) Urine Blood Negative (NEG) Urine Nitrite Negative (NEG) Urine Bilirubin Small (NEG) Urine Urobilinogen Dipstick 0.2 mg/dL (0.2 mg/dL) Urine Leukocyte Esterase Negative (NEG) Urine RBC 0 /HPF (0-2) Urine WBC 0 /HPF (0-4) Urine Amorphous Sediment Present /HPF Urine Bacteria 0 /HPF (0-FEW) Urine Opiates Screen Neg (NEG) Urine Methadone Screen Neg (NEG) Urine Barbiturates Neg (NEG) Urine Phencyclidine Screen Neg (NEG) Urine Amphetamine/Methamphetamine Neg (NEG) Urine Benzodiazepines Screen Pos (NEG) Urine Cocaine Screen Neg (NEG) Urine Cannabinoids Screen Neg (NEG) Urine Ethyl Alcohol Neg (NEG) White Blood Count 4.4 x10^3/uL (4.0-11.0) Red Blood Count 4.17 x10^6/uL (3.50-5.40) Hemoglobin 13.5 g/dL (12.0-15.5) Hematocrit 38.9 % (36.0-47.0) Mean Corpuscular Volume 93 fL (79-100) Mean Corpuscular Hemoglobin 33 pg (25-35) Mean Corpuscular Hemoglobin Concent 35 g/dL (31-37) Red Cell Distribution Width 13.3 % (11.5-14.5) Platelet Count 264 x10^3/uL (140-400) Neutrophils (%) (Auto) 66 % (31-73) Lymphocytes (%) (Auto) 24 % (24-48) Monocytes (%) (Auto) 8 % (0-9) Eosinophils (%) (Auto) 2 % (0-3) Basophils (%) (Auto) 1 % (0-3) Neutrophils # (Auto) 2.9 x10^3/uL (1.8-7.7) Lymphocytes # (Auto) 1.1 x10^3/uL (1.0-4.8) Monocytes # (Auto) 0.3 x10^3/uL (0.0-1.1) Eosinophils # (Auto) 0.1 x10^3/uL (0.0-0.7) Basophils # (Auto) 0.0 x10^3/uL (0.0-0.2) Sodium Level 142 mmol/L (136-145) Potassium Level 3.2 mmol/L (3.5-5.1) Chloride Level 101 mmol/L (98-107) Carbon Dioxide Level 24 mmol/L (21-32) Anion Gap 17 (6-14) Blood Urea Nitrogen 28 mg/dL (7-20) Creatinine 1.2 mg/dL (0.6-1.0) Estimated GFR (Cockcroft-Gault) 43.4 BUN/Creatinine Ratio 23 (6-20) Glucose Level 103 mg/dL (70-99) Calcium Level 9.7 mg/dL (8.5-10.1) Magnesium Level 2.1 mg/dL (1.8-2.4) Total Bilirubin 0.7 mg/dL (0.2-1.0) Aspartate Amino Transf (AST/SGOT) 24 U/L (15-37) Alanine Aminotransferase (ALT/SGPT) 36 U/L (14-59) Alkaline Phosphatase 75 U/L (46-116) Creatine Kinase 45 U/L (26-192) Creatine Kinase MB (Mass) 1.7 ng/mL (0.0-3.6) Creatine Kinase MB Relative Index % (0-4) Troponin I Quantitative < 0.017 ng/mL (0.000-0.055) Total Protein 6.9 g/dL (6.4-8.2) Albumin 4.0 g/dL (3.4-5.0) Albumin/Globulin Ratio 1.4 (1.0-1.7) Vitamin B12 Level 436 pg/mL (247-911) Thyroid Stimulating Hormone (TSH) 1.089 uIU/mL (0.358-3.74) Salicylates Level < 2.8 mg/dL (2.8-20.0) Salicylate Last Dose Date Unknown Salicylate Last Dose Time Unknown Acetaminophen Level < 2 mcg/ml (10-30) Acetaminophen Last Dose Date Unknown Acetaminophen Last Dose Time Unknown Ethyl Alcohol Level < 10 mg/dL (0-10) Lactic Acid Level 0.6 mmol/L (0.4-2.0) Ammonia 17 mcmol/L (11-34) Test 11/16/20 06:45 White Blood Count 3.6 x10^3/uL (4.0-11.0) Red Blood Count 3.55 x10^6/uL (3.50-5.40) Hemoglobin 11.9 g/dL (12.0-15.5) Hematocrit 34.0 % (36.0-47.0) Mean Corpuscular Volume 96 fL (79-100) Mean Corpuscular Hemoglobin 34 pg (25-35) Mean Corpuscular Hemoglobin Concent 35 g/dL (31-37) Red Cell Distribution Width 13.1 % (11.5-14.5) Platelet Count 213 x10^3/uL (140-400) Neutrophils (%) (Auto) 58 % (31-73) Lymphocytes (%) (Auto) 32 % (24-48) Monocytes (%) (Auto) 8 % (0-9) Eosinophils (%) (Auto) 3 % (0-3) Basophils (%) (Auto) 0 % (0-3) Neutrophils # (Auto) 2.1 x10^3/uL (1.8-7.7) Lymphocytes # (Auto) 1.1 x10^3/uL (1.0-4.8) Monocytes # (Auto) 0.3 x10^3/uL (0.0-1.1) Eosinophils # (Auto) 0.1 x10^3/uL (0.0-0.7) Basophils # (Auto) 0.0 x10^3/uL (0.0-0.2) Sodium Level 147 mmol/L (136-145) Potassium Level 3.2 mmol/L (3.5-5.1) Chloride Level 112 mmol/L (98-107) Carbon Dioxide Level 24 mmol/L (21-32) Anion Gap 11 (6-14) Blood Urea Nitrogen 18 mg/dL (7-20) Creatinine 1.0 mg/dL (0.6-1.0) Estimated GFR (Cockcroft-Gault) 53.6 Glucose Level 85 mg/dL (70-99) Calcium Level 8.3 mg/dL (8.5-10.1) Phosphorus Level 2.9 mg/dL (2.6-4.7) Magnesium Level 1.9 mg/dL (1.8-2.4) Review of Systems Review of Systems: Skin warm to touch. no obvious lacerations or bruising/ Patient appears calm. No signs of agitation. Assessment and Plan Assessmemt and Plan Problems Medical Problems: (1) Acute renal insufficiency Status: Acute (2) Dehydration Status: Acute (3) Hallucinations Status: Acute (4) Hypokalemia Status: Acute ASSESSMENT Acute encephalopathy NOS Acute delirium due to infection vs toxic vs metabolic disturbance vs psychologic disturbance Hallucinations Catatonia Dehydration Cognitive impairment worsening CHUCK due to vasomotor nephropathy Hypokalemia Elevated BUN and Cr Anemia Leukopenia Depression PLAN Consult Neuro Order 40 mg potassium PT/OT Speech therapy Home meds Lovenox for DVT prophylaxis Full code Discharge disposition likely home with daughter Soila chavira for agitation Comment Review of Relevant I have reviewed the following items curly (where applicable) has been applied. Medications: Current Medications Medications (Trade) Dose Ordered Sig/Álvaro Route PRN Reason Start Time Stop Time Status Last Admin Dose Admin Sodium Chloride 1,000 ml @ 1,000 mls/hr 1X ONCE IV 11/15/20 11:45 11/15/20 12:44 DC 11/15/20 12:14 Sodium Chloride 1,000 ml @ 100 mls/hr 1X ONCE IV 11/15/20 16:00 11/16/20 01:59 DC 11/15/20 16:17 Lorazepam (Ativan Inj) 0.5 mg PRN Q6HRS PRN IVP ANXIETY / AGITATION 11/15/20 16:00 11/16/20 01:10 Potassium Chloride (Klor-Con) 40 meq 1X ONCE PO 11/15/20 16:30 11/15/20 16:31 DC 11/15/20 16:29 Sodium Chloride 1,000 ml @ 100 mls/hr Q10H IV 11/15/20 17:45 11/16/20 08:40 Enoxaparin Sodium (Lovenox 30mg Syringe) 30 mg Q24H SQ 11/16/20 09:00 11/16/20 08:39 Olanzapine (ZyPREXA) 15 mg QHS PO 11/15/20 21:00 11/15/20 21:11 Lorazepam (Ativan) 1 mg TID PO 11/15/20 21:00 11/16/20 09:04 Justifications for Admission Other Justification Acute encephalopathy JEFFERSON FAUSTIN III DO Nov 16, 2020 10:28
--- NOTE | 2020-11-16 15:58 | NUR ---
SW following for discharge planning. Spoke with RN and reviewed chart. SW met with pt and pt's daughter today. SW obtained social hx from daughter as pt speaks Welsh. Pt from home with spouse. Pt has a hx of Bipolar and depression and tends to go through episodes of not eating/drinking and general decline when spouse is sick. Pt's spouse currently on chemo and unable to care for pt. Pt's two adult daughters provide 24 hour care to pt and take turns spending the night with pt. Pt on room air, cardiac diet, oral medications. SW provided education about PD care and different levels of care. Pt's daughter considering HH but declined SNU on discharge. PT/OT recommendation is for HH. Pt's daughter also is not interested in geriatric psychiatric facility for pt as pt has been to these before and does not benefit per language barrier. SW following.
--- NOTE | 2020-11-16 16:15 | RAD ---
Supine abdomen. HISTORY: Drop in blood pressure Supine view was taken of the abdomen. There are mesenteric calcifications unchanged from the old CT. There is degenerative change in the lumbar spine. Bowel pattern is unremarkable without bowel obstruc tion. Patient's had a cholecystectomy. There is no obvious free air but decubitus view or upright vie w would be necessary to evaluate for free air. There is mild density in the pelvis possibly distended bladder. IMPRESSION: 1. Density in the pelvis probable probably distended bladder although ascites can have this pattern. 2. No bowel obstruction noted. Electronically signed by: Denver Martínez MD (11/16/2020 4:12 PM) [id number]
--- NOTE | 2020-11-16 18:56 | PDOC ---
F/U PHYSCH PROG NOTE Subjective: 80-year-old female seen for follow-up. Progress is reviewed with nursing staff and patient son who was at patient's bedside. She appears relatively more alert and responsive calling her son's name. Reportedly she has a started eating seems to be responding to Ativan challenge. Son is also endorsing progress in treatment. Reporting, he has noticed improvement that patient is more verbal asking for food and eating and drinking relatively compared to previous days. She is somewhat recognizing family. No safety issues or suicidal threats. No hallucinations reported. Apparently not reacting to internal stimuli. Objective: 14 point review of system is otherwise negative except for stated above. Vital Signs: Vital Signs Date Time Temp Pulse Resp B/P (MAP) Pulse Ox O2 Delivery O2 Flow Rate FiO2 11/16/20 18:10 125/56 (79) 11/16/20 14:51 98.5 67 18 96 Room Air 98.5 Labs: Laboratory Tests Test 11/16/20 06:45 White Blood Count 3.6 x10^3/uL (4.0-11.0) L Red Blood Count 3.55 x10^6/uL (3.50-5.40) Hemoglobin 11.9 g/dL (12.0-15.5) L Hematocrit 34.0 % (36.0-47.0) L Mean Corpuscular Volume 96 fL (79-100) Mean Corpuscular Hemoglobin 34 pg (25-35) Mean Corpuscular Hemoglobin Concent 35 g/dL (31-37) Red Cell Distribution Width 13.1 % (11.5-14.5) Platelet Count 213 x10^3/uL (140-400) Neutrophils (%) (Auto) 58 % (31-73) Lymphocytes (%) (Auto) 32 % (24-48) Monocytes (%) (Auto) 8 % (0-9) Eosinophils (%) (Auto) 3 % (0-3) Basophils (%) (Auto) 0 % (0-3) Neutrophils # (Auto) 2.1 x10^3/uL (1.8-7.7) Lymphocytes # (Auto) 1.1 x10^3/uL (1.0-4.8) Monocytes # (Auto) 0.3 x10^3/uL (0.0-1.1) Eosinophils # (Auto) 0.1 x10^3/uL (0.0-0.7) Basophils # (Auto) 0.0 x10^3/uL (0.0-0.2) Sodium Level 147 mmol/L (136-145) H Potassium Level 3.2 mmol/L (3.5-5.1) L Chloride Level 112 mmol/L (98-107) H Carbon Dioxide Level 24 mmol/L (21-32) Anion Gap 11 (6-14) Blood Urea Nitrogen 18 mg/dL (7-20) Creatinine 1.0 mg/dL (0.6-1.0) Estimated GFR (Cockcroft-Gault) 53.6 Glucose Level 85 mg/dL (70-99) Calcium Level 8.3 mg/dL (8.5-10.1) L Phosphorus Level 2.9 mg/dL (2.6-4.7) Magnesium Level 1.9 mg/dL (1.8-2.4) Laboratory Tests 11/16/20 06:45 Laboratory Tests 11/16/20 06:45 Medications: Current Medications Medications (Trade) Dose Ordered Sig/Álvaro Start Time Stop Time Status Last Admin Dose Admin Acetaminophen (Tylenol) 650 mg PRN Q4HRS PRN 11/15/20 17:45 Dextrose (Dextrose 50%-Water Syringe) 12.5 gm PRN Q15MIN PRN 11/15/20 17:45 Docusate Sodium (Colace) 100 mg PRN DAILY PRN 11/15/20 17:45 Enoxaparin Sodium (Lovenox 30mg Syringe) 30 mg Q24H 11/16/20 09:00 11/16/20 13:21 DC 11/16/20 08:39 30 MG Enoxaparin Sodium (Lovenox 40mg Syringe) 40 mg Q24H 11/17/20 09:00 Lorazepam (Ativan Inj) 0.5 mg PRN Q6HRS PRN 11/15/20 16:00 11/16/20 01:10 0.5 MG Lorazepam (Ativan) 0.5 mg PRN Q6HRS PRN 11/15/20 21:00 Olanzapine (ZyPREXA) 15 mg QHS 11/15/20 21:00 11/15/20 21:11 15 MG Ondansetron HCl (Zofran) 4 mg PRN Q6HRS PRN 11/15/20 17:45 Potassium Chloride (Klor-Con) 40 meq 1X ONCE 11/15/20 16:30 11/15/20 16:31 DC 11/15/20 16:29 40 MEQ Sennosides (Senna) 17.2 mg PRN BID PRN 11/15/20 17:45 Sodium Chloride 1,000 ml @ 100 mls/hr Q10H 11/15/20 17:45 11/16/20 14:42 100 MLS/HR Physical Exam: Mental Status Exam: 80-year-old female of [place] descent Not very cooperative due to language barrier Disoriented Disorganized thought process Denies suicidal or homicidal thoughts Denies auditory or visual hallucinations. Reacting to internal stimuli Paranoid Mood is depressed Affect is dysthymic Insight is poor Judgment is poor Impulse control is poor Attention span and concentration impaired Recent and remote memory impaired Physical Exam: Refer to Physician's note. 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 Apparently CT scan is without any abnormality. Would recommend neurology consult for further assessment. Meanwhile, Ativan challenge can be given to assess for catatonia as history is consistent with eight. Presently, patient appears catatonic with the staring spells and irrelevant speech. 11/16/2020: She seems to be responding to Ativan challenge, more verbal, more responsive, eating and drinking. Family also endorsed improvement. Recom mending neurology consult or MRI brain. Will reduce the dose of Ativan to 0.5 mg 3 times daily. Plan: Continue Ativan and reduce dose to 0.5 mg 3 times daily. Monitor for excessive sedation. Neurology consult, MRI brain. Psychoeducation provided. Continue Zyprexa as is. Avoid Xanax. Discussed catatonia and treatment plan with daughter in detail. She is in agreement with plan and expressed understanding. ELENA GUNTER MD Nov 16, 2020 18:56
[2020-11-16] MEDS: LORazepam 0.5 MG TABLET PO SCH (20:01)
[2020-11-16] MEDS: OLANZapine 5 MG TABLET PO SCH (20:01)
[2020-11-17 03:00] VITALS: BP 150/59
[2020-11-17 07:00] VITALS: BP 150/59
[2020-11-17 07:26] LABS: BASO % 0 % (0-3); EOS # 0.2 x10^3/uL (0.0-0.7); EOS % 4 % (0-3); HEMATOCRIT 34.7 % (36.0-47.0); HEMOGLOBIN 11.9 g/dL (12.0-15.5); LYMPH % 22 % (24-48); MEAN CORPUSCULAR HEMOGLOBIN 33 pg (25-35); MEAN CORPUSCULAR HGB CONC 34 g/dL (31-37); MEAN CORPUSCULAR VOLUME 95 fL (79-100); MONO # 0.3 x10^3/uL (0.0-1.1); MONO % 7 % (0-9); NEUT % 67 % (31-73); PLATELET COUNT 219 x10^3/uL (140-400); RED BLOOD COUNT 3.66 x10^6/uL (3.50-5.40); WHITE BLOOD COUNT 4.4 x10^3/uL (4.0-11.0)
[2020-11-17 07:42] LABS: CALCIUM 8.6 mg/dL (8.5-10.1); CREATININE 0.8 mg/dL (0.6-1.0); GFR 69.4; POTASSIUM 3.3 mmol/L (3.5-5.1)
--- NOTE | 2020-11-17 08:45 | PDOC ---
[employer] PROGRESS NOTE Date of Service DOS: DATE: 11/17/20 TIME: 08:43 Chief Complaint Chief Complaint Acute encephalopathy NOS Acute delirium due to infection vs toxic vs metabolic disturbance vs psychologic disturbance Hallucinations Catatonia Dehydration Cognitive impairment worsening CHUCK due to vasomotor nephropathy Hypokalemia Elevated BUN and Cr Anemia Leukopenia Depression History of Present Illness History of Present Illness 11/16 Patient seen and examined today Discussed with RN Discussed with Library Attendant Discussed with daughter Soila Patient needs daughter as technical translator Resting comfortably and quietly Patient appears calm daughter states patient "believes she is having a baby" 11/17 Patient seen and examined Discussed with RN Chart reviewed Patient is paranoid but is comfortable Vitals/I&O Vitals/I&O: Vital Signs Date Time Temp Pulse Resp B/P (MAP) Pulse Ox O2 Delivery O2 Flow Rate FiO2 11/17/20 08:00 Room Air 11/17/20 07:00 99.4 83 20 150/59 (89) 98 99.4 I & O 11/16/20 11/16/20 11/17/20 15:00 23:00 07:00 Intake Total 900 ml 100 ml Output Total 1 ml Balance 900 ml 99 ml Physical Exam General: Alert, No acute distress, Other Heart: Regular rate, No murmurs Lungs: Clear Abdomen: Soft, No tenderness Extremities: No clubbing, No cyanosis Skin: No rashes, No breakdown Labs Labs: Laboratory Tests Test 11/17/20 06:45 White Blood Count 4.4 x10^3/uL (4.0-11.0) Red Blood Count 3.66 x10^6/uL (3.50-5.40) Hemoglobin 11.9 g/dL (12.0-15.5) Hematocrit 34.7 % (36.0-47.0) Mean Corpuscular Volume 95 fL (79-100) Mean Corpuscular Hemoglobin 33 pg (25-35) Mean Corpuscular Hemoglobin Concent 34 g/dL (31-37) Red Cell Distribution Width 13.0 % (11.5-14.5) Platelet Count 219 x10^3/uL (140-400) Neutrophils (%) (Auto) 67 % (31-73) Lymphocytes (%) (Auto) 22 % (24-48) Monocytes (%) (Auto) 7 % (0-9) Eosinophils (%) (Auto) 4 % (0-3) Basophils (%) (Auto) 0 % (0-3) Neutrophils # (Auto) 3.0 x10^3/uL (1.8-7.7) Lymphocytes # (Auto) 1.0 x10^3/uL (1.0-4.8) Monocytes # (Auto) 0.3 x10^3/uL (0.0-1.1) Eosinophils # (Auto) 0.2 x10^3/uL (0.0-0.7) Basophils # (Auto) 0.0 x10^3/uL (0.0-0.2) Sodium Level 146 mmol/L (136-145) Potassium Level 3.3 mmol/L (3.5-5.1) Chloride Level 112 mmol/L (98-107) Carbon Dioxide Level 22 mmol/L (21-32) Anion Gap 12 (6-14) Blood Urea Nitrogen 17 mg/dL (7-20) Creatinine 0.8 mg/dL (0.6-1.0) Estimated GFR (Cockcroft-Gault) 69.4 Glucose Level 108 mg/dL (70-99) Calcium Level 8.6 mg/dL (8.5-10.1) Review of Systems Review of Systems: Denies chest pain or palpitations Denies headache or changes in vision Denies itching or rashes Assessment and Plan Assessmemt and Plan Problems Medical Problems: (1) Acute renal insufficiency Status: Acute (2) Dehydration Status: Acute (3) Hallucinations Status: Acute (4) Hypokalemia Status: Acute Assessment: Acute encephalopathy NOS Acute delirium due to infection vs toxic vs metabolic disturbance vs psychologic disturbance Hallucinations Catatonia Dehydration Cognitive impairment worsening CHUCK due to vasomotor nephropathy Hypokalemia Elevated BUN and Cr Anemia Leukopenia Depression Plan: Lovenox for DVT prophylaxis Continue Colace IV haldol for agitation Speech therapy Home meds Full code PT/OT Comment Review of Relevant I have reviewed the following items curly (where applicable) has been applied. Medications: Current Medications Medications (Trade) Dose Ordered Sig/Álvaro Route PRN Reason Start Time Stop Time Status Last Admin Dose Admin Enoxaparin Sodium (Lovenox 30mg Syringe) 30 mg Q24H SQ 11/16/20 09:00 11/16/20 13:21 DC 11/16/20 08:39 Lorazepam (Ativan) 0.5 mg TID PO 11/16/20 21:00 11/16/20 20:01 Justifications for Admission Other Justification Acute encephalopathy JEFFERSON FAUSTIN III DO Nov 17, 2020 08:45
[2020-11-17] MEDS ORDERED: POTASSIUM CHLORIDE 20 MEQ TABLET.ER. PO ONE (09:30)
[2020-11-17] MEDS: IV DEXTROSE 5 %-0.45 % NACL 1,000 ML IV SCH ×2 (10:40→21:03)
[2020-11-17] MEDS: ENOXAPARIN 40 MG/0.4 ML SYRINGE. SQ SCH (10:40)
[2020-11-17] MEDS: LORazepam 0.5 MG TABLET PO SCH ×3 (10:41→21:06)
[2020-11-17 11:00] VITALS: BP 134/66
--- NOTE | 2020-11-17 14:11 | PDOC2 ---
NEUROLOGY CONSULT Date of Service DOS: DATE: 11/17/20 TIME: 13:57 Reason for Consult Reason for Consult: Possible dementia Referring Physician Referring Physician: Dr. Bullard, Dr. Stiles Source Source: Caregiver (2 daughters), Chart review, Patient History of Present Illness History of Present Illness The patient is a 80-year-old right-handed female admitted 2 days ago with a sounds of catatonia. The patient stops moving and has bradykinesia, occasional tremors. The patient has a long history of depression. At one point she was diagnosed with bipolar, but a more recent psychiatrist told the family that the patient was depressed. Patient is under stress due to 's illness. The patient was evaluated at [facility] 2 weeks ago in the emergency department and had a negative head CT. She was told that she may be dehydrated. Indeed on admission here, the patient did have some renal insufficiency. There is no history of stroke, seizure, or head injury. Past Medical History Cardiovascular: Other (Phlebitis) Psych: Anxiety, Bipolar (?), Depression Rheumatologic: Fibromyalgia ENT: Other (Glaucoma) Endocrine: Hypothyroidism Past Surgical History Past Surgical History: Cholecystectomy, Tubal Ligation Family History Family History: Cancer, Other (Sister has Alzheimers) Social History Social History , speaks only Czech, has been in the [place] years, no alcohol or tobacco Current Medications Current Medications Current Medications Sodium Chloride 1,000 ml @ 1,000 mls/hr 1X ONCE IV Last administered on 11/15/20at 12:14; Start 11/15/20 at 11:45; Stop 11/15/20 at 12:44; Status DC Ondansetron HCl (Zofran) 4 mg PRN Q8HRS PRN IV NAUSEA/VOMITING; Start 11/15/20 at 16:00; Stop 11/16/20 at 15:59; Status DC Sodium Chloride 1,000 ml @ 100 mls/hr 1X ONCE IV Last administered on 11/15/20at 16:17; Start 11/15/20 at 16:00; Stop 11/16/20 at 01:59; Status DC Lorazepam (Ativan Inj) 0.5 mg PRN Q6HRS PRN IVP ANXIETY / AGITATION Last administered on 11/16/20at 01:10; Start 11/15/20 at 16:00 Potassium Chloride (Klor-Con) 40 meq 1X ONCE PO Last administered on 11/15/20at 16:29; Start 11/15/20 at 16:30; Stop 11/15/20 at 16:31; Status DC Sennosides (Senna) 17.2 mg PRN BID PRN PO CONSTIPATION Last administered on 11/17/20at 10:41; Start 11/15/20 at 17:45 Docusate Sodium (Colace) 100 mg PRN DAILY PRN PO HARD STOOLS Last administered on 11/17/20at 10:41; Start 11/15/20 at 17:45 Ondansetron HCl (Zofran) 4 mg PRN Q6HRS PRN IVP NAUSEA/VOMITING; Start 11/15/20 at 17:45 Dextrose (Dextrose 50%-Water Syringe) 12.5 gm PRN Q15MIN PRN IV SEE COMMENTS; Start 11/15/20 at 17:45 Sodium Chloride 1,000 ml @ 100 mls/hr Q10H IV Last administered on 11/16/20at 14:42; Start 11/15/20 at 17:45; Stop 11/17/20 at 08:44; Status DC Acetaminophen (Tylenol) 650 mg PRN Q4HRS PRN PO TEMP OVER 100.4F Last administered on 11/17/20at 10:46; Start 11/15/20 at 17:45 Enoxaparin Sodium (Lovenox 30mg Syringe) 30 mg Q24H SQ Last administered on 11/16/20at 08:39; Start 11/16/20 at 09:00; Stop 11/16/20 at 13:21; Status DC Olanzapine (ZyPREXA) 15 mg QHS PO Last administered on 11/16/20at 20:01; Start 11/15/20 at 21:00 Lorazepam (Ativan) 1 mg TID PO Last administered on 11/16/20at 09:04; Start 11/15/20 at 21:00; Stop 11/16/20 at 19:12; Status DC Lorazepam (Ativan) 0.5 mg PRN Q6HRS PRN PO ANXIETY / AGITATION; Start 11/15/20 at 21:00 Enoxaparin Sodium (Lovenox 40mg Syringe) 40 mg Q24H SQ Last administered on 11/17/20at 10:40; Start 11/17/20 at 09:00 Lorazepam (Ativan) 0.5 mg TID PO Last administered on 11/17/20at 10:41; Start 11/16/20 at 21:00 Dextrose/Sodium Chloride 1,000 ml @ 100 mls/hr Q10H IV Last administered on 11/17/20at 10:40; Start 11/17/20 at 09:30 Potassium Chloride (Klor-Con) 40 meq 1X ONCE PO Last administered on 11/17/20at 10:39; Start 11/17/20 at 09:30; Stop 11/17/20 at 09:31; Status DC Active Scripts Active Reported Dorzolamide-Timolol Eye Drops (Dorzolamide Hcl/Timolol Maleat) 10 Ml Drops 1 Drop EACHEYE BID Alprazolam 0.25 Mg Tablet 0.25 Mg PO PRN TID PRN Levothyroxine Sodium 75 Mcg Tablet 75 Mcg PO DAILYAC Hydrochlorothiazide Tablet (Hydrochlorothiazide) 12.5 Mg Tablet 25 Mg PO DAILY Olanzapine 10 Mg Tablet 15 Mg PO HS Zoloft (Sertraline Hcl) 50 Mg Tablet 75 Mg PO DAILY Carbamazepine 200 Mg Tablet 400 Mg PO HS Carbamazepine 100 Mg Cpmp.12hr 200 Mg PO DAILY Allergies Allergies: Coded Allergies: No Known Drug Allergies (Unverified , 04/28/19) ROS Review of System Negative for fever, chills, weight loss, shortness of breath, chest pain, indigestion, hematochezia, melena, and dysuria. Full 14-point review of systems is negative. Physical Exam Physical Examination General: Well-developed, well-nourished white female in no acute distress HEENT: Normocephalic andatraumatic. Temporal arteriespulsatile and nontender. Neck: Supple without bruit, no meningismus Musculoskeletal: Stability:see neurologic. Gait exam:see neurologic. Tone:see neurologic.Strength:see neurologic. Neurological: Mental Status: orientation, memory, attention span/concentration, language, fund of knowledge: Thinks that she is in [place], talks about dogs, thinks that she used to drive with me in a car when I was a boy. Names and repeats well, follows commands. Cranial Nerves:Pupils equal and reactive to light, extraocular movements areintact, visual stringer are full to confrontation. Facial sensation is normal. There is no facial asymmetry. Vestibulo-ocular reflex is intact. Palate elevates and tongue protrudes in midline. All other cranial related problems are negative except as mentioned before.Reflexes:1+ and symmetric with flexor plantar responses. Motor:5/5 strength with normal tone and bulk. Coordination:Finger-nose finger and [id number] testing are normal. Rapid alternating movements and fine finger movements are intact. Gait:Apraxic, fearful of falling. Sensory:Normal pinprick, vibration, light touch, proprioception. Vitals VITALS Vital Signs Date Time Temp Pulse Resp B/P (MAP) Pulse Ox O2 Delivery O2 Flow Rate FiO2 11/17/20 11:00 97.8 71 18 134/66 (88) 98 Room Air 97.8 Labs Labs Laboratory Tests Test 11/15/20 14:56 11/16/20 06:45 11/17/20 06:45 Ammonia 17 mcmol/L (11-34) White Blood Count 3.6 x10^3/uL (4.0-11.0) 4.4 x10^3/uL (4.0-11.0) Red Blood Count 3.55 x10^6/uL (3.50-5.40) 3.66 x10^6/uL (3.50-5.40) Hemoglobin 11.9 g/dL (12.0-15.5) 11.9 g/dL (12.0-15.5) Hematocrit 34.0 % (36.0-47.0) 34.7 % (36.0-47.0) Mean Corpuscular Volume 96 fL (79-100) 95 fL (79-100) Mean Corpuscular Hemoglobin 34 pg (25-35) 33 pg (25-35) Mean Corpuscular Hemoglobin Concent 35 g/dL (31-37) 34 g/dL (31-37) Red Cell Distribution Width 13.1 % (11.5-14.5) 13.0 % (11.5-14.5) Platelet Count 213 x10^3/uL (140-400) 219 x10^3/uL (140-400) Neutrophils (%) (Auto) 58 % (31-73) 67 % (31-73) Lymphocytes (%) (Auto) 32 % (24-48) 22 % (24-48) Monocytes (%) (Auto) 8 % (0-9) 7 % (0-9) Eosinophils (%) (Auto) 3 % (0-3) 4 % (0-3) Basophils (%) (Auto) 0 % (0-3) 0 % (0-3) Neutrophils # (Auto) 2.1 x10^3/uL (1.8-7.7) 3.0 x10^3/uL (1.8-7.7) Lymphocytes # (Auto) 1.1 x10^3/uL (1.0-4.8) 1.0 x10^3/uL (1.0-4.8) Monocytes # (Auto) 0.3 x10^3/uL (0.0-1.1) 0.3 x10^3/uL (0.0-1.1) Eosinophils # (Auto) 0.1 x10^3/uL (0.0-0.7) 0.2 x10^3/uL (0.0-0.7) Basophils # (Auto) 0.0 x10^3/uL (0.0-0.2) 0.0 x10^3/uL (0.0-0.2) Sodium Level 147 mmol/L (136-145) 146 mmol/L (136-145) Potassium Level 3.2 mmol/L (3.5-5.1) 3.3 mmol/L (3.5-5.1) Chloride Level 112 mmol/L (98-107) 112 mmol/L (98-107) Carbon Dioxide Level 24 mmol/L (21-32) 22 mmol/L (21-32) Anion Gap 11 (6-14) 12 (6-14) Blood Urea Nitrogen 18 mg/dL (7-20) 17 mg/dL (7-20) Creatinine 1.0 mg/dL (0.6-1.0) 0.8 mg/dL (0.6-1.0) Estimated GFR (Cockcroft-Gault) 53.6 69.4 Glucose Level 85 mg/dL (70-99) 108 mg/dL (70-99) Calcium Level 8.3 mg/dL (8.5-10.1) 8.6 mg/dL (8.5-10.1) Phosphorus Level 2.9 mg/dL (2.6-4.7) Magnesium Level 1.9 mg/dL (1.8-2.4) Laboratory Tests Test 11/17/20 06:45 White Blood Count 4.4 x10^3/uL (4.0-11.0) Red Blood Count 3.66 x10^6/uL (3.50-5.40) Hemoglobin 11.9 g/dL (12.0-15.5) Hematocrit 34.7 % (36.0-47.0) Mean Corpuscular Volume 95 fL (79-100) Mean Corpuscular Hemoglobin 33 pg (25-35) Mean Corpuscular Hemoglobin Concent 34 g/dL (31-37) Red Cell Distribution Width 13.0 % (11.5-14.5) Platelet Count 219 x10^3/uL (140-400) Neutrophils (%) (Auto) 67 % (31-73) Lymphocytes (%) (Auto) 22 % (24-48) Monocytes (%) (Auto) 7 % (0-9) Eosinophils (%) (Auto) 4 % (0-3) Basophils (%) (Auto) 0 % (0-3) Neutrophils # (Auto) 3.0 x10^3/uL (1.8-7.7) Lymphocytes # (Auto) 1.0 x10^3/uL (1.0-4.8) Monocytes # (Auto) 0.3 x10^3/uL (0.0-1.1) Eosinophils # (Auto) 0.2 x10^3/uL (0.0-0.7) Basophils # (Auto) 0.0 x10^3/uL (0.0-0.2) Sodium Level 146 mmol/L (136-145) Potassium Level 3.3 mmol/L (3.5-5.1) Chloride Level 112 mmol/L (98-107) Carbon Dioxide Level 22 mmol/L (21-32) Anion Gap 12 (6-14) Blood Urea Nitrogen 17 mg/dL (7-20) Creatinine 0.8 mg/dL (0.6-1.0) Estimated GFR (Cockcroft-Gault) 69.4 Glucose Level 108 mg/dL (70-99) Calcium Level 8.6 mg/dL (8.5-10.1) Images Images CT head without contrast The ventricles and sulci are mildly enlarged, reflecting age-related volume loss. Kaufman-white matter differentiation is maintained. There is no intracranial hemorrhage, acute infarct, or mass lesion. Basal cisterns are clear. The skull and scalp are intact. The visualized paranasal sinuses and mastoid air cells are clear. Globes and orbits are intact. IMPRESSION: 1. No acute intracranial abnormality. 2. Unchanged mild volume loss. Assessment/Plan Assessment/Plan Impression: I suspect she is developing dementia in the setting of previous psychiatric disease including bipolar disorder. possibly, with psychosis. She has had some catatonic episodes. I do not think she is having stroke, neurodegenerative disease of another kind, central nervous system infection, or seizure activity. Note that she has had 2 normal head CTs in the past 2 weeks, plus normal B12, thyroid, and ammonia levels here. Recommendations: Defer to psychiatry, but it may be best for her to go to geriatric psychiatry such as at [facility] Eventually we can add on donepezil and Namenda, but I do not want to start these now given their side effects I see no need for MRI, EEG, or lumbar puncture Fully discussed with patient's daughters. Thank you for letting me help with the patient's care. JEROME BYNUM MD Nov 17, 2020 14:11
[2020-11-17 15:00] VITALS: BP 127/52
[2020-11-17 19:00] VITALS: BP 143/42
[2020-11-17] MEDS: OLANZapine 5 MG TABLET PO SCH (21:06)
[2020-11-17 23:00] VITALS: BP 144/56
[2020-11-18 03:02] VITALS: BP 147/68
[2020-11-18 07:34] LABS: BASO % 0 % (0-3); EOS # 0.2 x10^3/uL (0.0-0.7); EOS % 6 % (0-3); HEMATOCRIT 33.1 % (36.0-47.0); HEMOGLOBIN 11.3 g/dL (12.0-15.5); LYMPH % 31 % (24-48); MEAN CORPUSCULAR HEMOGLOBIN 33 pg (25-35); MEAN CORPUSCULAR HGB CONC 34 g/dL (31-37); MEAN CORPUSCULAR VOLUME 96 fL (79-100); MONO # 0.3 x10^3/uL (0.0-1.1); MONO % 8 % (0-9); NEUT # 1.9 x10^3/uL (1.8-7.7); NEUT % 55 % (31-73); PLATELET COUNT 193 x10^3/uL (140-400); RED BLOOD COUNT 3.45 x10^6/uL (3.50-5.40); RED CELL DISTRIBUTION WIDTH 13.2 % (11.5-14.5); WHITE BLOOD COUNT 3.4 x10^3/uL (4.0-11.0)
[2020-11-18 07:48] LABS: CALCIUM 8.2 mg/dL (8.5-10.1); CREATININE 0.7 mg/dL (0.6-1.0); GFR 80.9; POTASSIUM 3.5 mmol/L (3.5-5.1)
[2020-11-18] MEDS: IV DEXTROSE 5 %-0.45 % NACL 1,000 ML IV SCH ×2 (07:49→17:41)
[2020-11-18 07:59] VITALS: BP 156/62
[2020-11-18] MEDS: LORazepam 0.5 MG TABLET PO SCH ×3 (09:00→21:33)
--- NOTE | 2020-11-18 09:20 | PDOC ---
[employer] PROGRESS NOTE Date of Service DOS: DATE: 11/18/20 TIME: 09:18 Chief Complaint Chief Complaint Acute encephalopathy NOS Acute delirium due to infection vs toxic vs metabolic disturbance vs psychologic disturbance Hallucinations Catatonia Dehydration Cognitive impairment worsening CHUCK due to vasomotor nephropathy Hypokalemia Elevated BUN and Cr Anemia Leukopenia Depression History of Present Illness History of Present Illness 11/16 Patient seen and examined today Discussed with RN Discussed with Shuttle Repairer Discussed with daughter Soila Patient needs daughter as hydrate control tender Resting comfortably and quietly Patient appears calm daughter states patient "believes she is having a baby" 11/17 Patient seen and examined Discussed with RN Chart reviewed Patient is paranoid but is comfortable 11/18 Patient seen and examined Discussed with RN Chart reviewed Patient is comfortable and was resting when we seen her Vitals/I&O Vitals/I&O: Vital Signs Date Time Temp Pulse Resp B/P (MAP) Pulse Ox O2 Delivery O2 Flow Rate FiO2 11/18/20 07:59 98.7 83 20 156/62 (93) 96 Room Air 98.7 I & O 11/17/20 11/17/20 11/18/20 15:00 23:00 07:00 Intake Total 300 ml 1000 ml Output Total 0 ml Balance 300 ml 1000 ml 0 ml Physical Exam General: Alert, No acute distress, Other Heart: Regular rate, No murmurs Lungs: Clear Abdomen: Soft, No tenderness Extremities: No clubbing, No cyanosis Skin: No rashes, No breakdown Labs Labs: Laboratory Tests Test 11/18/20 06:30 White Blood Count 3.4 x10^3/uL (4.0-11.0) Red Blood Count 3.45 x10^6/uL (3.50-5.40) Hemoglobin 11.3 g/dL (12.0-15.5) Hematocrit 33.1 % (36.0-47.0) Mean Corpuscular Volume 96 fL (79-100) Mean Corpuscular Hemoglobin 33 pg (25-35) Mean Corpuscular Hemoglobin Concent 34 g/dL (31-37) Red Cell Distribution Width 13.2 % (11.5-14.5) Platelet Count 193 x10^3/uL (140-400) Neutrophils (%) (Auto) 55 % (31-73) Lymphocytes (%) (Auto) 31 % (24-48) Monocytes (%) (Auto) 8 % (0-9) Eosinophils (%) (Auto) 6 % (0-3) Basophils (%) (Auto) 0 % (0-3) Neutrophils # (Auto) 1.9 x10^3/uL (1.8-7.7) Lymphocytes # (Auto) 1.0 x10^3/uL (1.0-4.8) Monocytes # (Auto) 0.3 x10^3/uL (0.0-1.1) Eosinophils # (Auto) 0.2 x10^3/uL (0.0-0.7) Basophils # (Auto) 0.0 x10^3/uL (0.0-0.2) Sodium Level 146 mmol/L (136-145) Potassium Level 3.5 mmol/L (3.5-5.1) Chloride Level 113 mmol/L (98-107) Carbon Dioxide Level 24 mmol/L (21-32) Anion Gap 9 (6-14) Blood Urea Nitrogen 12 mg/dL (7-20) Creatinine 0.7 mg/dL (0.6-1.0) Estimated GFR (Cockcroft-Gault) 80.9 Glucose Level 114 mg/dL (70-99) Calcium Level 8.2 mg/dL (8.5-10.1) Review of Systems Review of Systems: Denies chest pain or palpitations Denies headache or changes in vision Denies itching or rashes Assessment and Plan Assessmemt and Plan Problems Medical Problems: (1) Acute renal insufficiency Status: Acute (2) Dehydration Status: Acute (3) Hallucinations Status: Acute (4) Hypokalemia Status: Acute Assessment: Acute encephalopathy NOS Acute delirium due to infection vs toxic vs metabolic disturbance vs psychologic disturbance Hallucinations Catatonia Dehydration Cognitive impairment worsening CHUCK due to vasomotor nephropathy Hypokalemia Elevated BUN and Cr Anemia Leukopenia Depression Plan: Probable transfer to [facility] Psych at [facility] subspecialty input Encourage PO intake Full code Home meds DVT prophylaxis PT/OT Comment Review of Relevant I have reviewed the following items curly (where applicable) has been applied. Medications: Current Medications Medications (Trade) Dose Ordered Sig/Álvaro Route PRN Reason Start Time Stop Time Status Last Admin Dose Admin Dextrose/Sodium Chloride 1,000 ml @ 100 mls/hr Q10H IV 11/17/20 09:30 11/18/20 07:49 Potassium Chloride (Klor-Con) 40 meq 1X ONCE PO 11/17/20 09:30 11/17/20 09:31 DC 11/17/20 10:39 Justifications for Admission Other Justification Acute encephalopathy JEFFERSON FAUSTIN III DO Nov 18, 2020 09:20
[2020-11-18] MEDS: ENOXAPARIN 40 MG/0.4 ML SYRINGE. SQ SCH (10:48)
[2020-11-18 11:59] VITALS: BP 165/79
[2020-11-18 15:59] VITALS: BP 161/77
[2020-11-18 19:00] VITALS: BP 108/60
[2020-11-18] MEDS: OLANZapine 5 MG TABLET PO SCH (21:33)
[2020-11-18 23:02] VITALS: BP 155/72
[2020-11-19] MEDS: IV DEXTROSE 5 %-0.45 % NACL 1,000 ML IV SCH ×3 (01:30→21:30)
[2020-11-19 03:05] VITALS: BP 125/63
[2020-11-19 07:00] VITALS: BP 109/61
--- NOTE | 2020-11-19 08:43 | PDOC ---
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 I do not think she is having stroke, neurodegenerative disease of another kind, central nervous system infection, or seizure activity. Note that she has had 2 normal head CTs in the past 2 weeks, plus normal B12, thyroid, and ammonia levels here. Plan Geriatric psychiatry such as at [facility] Eventually we can add on donepezil and Namenda, but I do not want to start these now given their side effects I see no need for MRI, EEG, or lumbar puncture Discussed with patient's daughter. Subjective none Objective Vital Signs Date Time Temp Pulse Resp B/P (MAP) Pulse Ox O2 Delivery O2 Flow Rate FiO2 11/19/20 03:05 97.7 80 20 125/63 (83) 98 Room Air 97.7 Intake and Output 11/19/20 07:00 # Voids 1 # Bowel Movements 1 PHYSICAL EXAM Alert. Oriented only to person. No active hallucinations. Speaks only Romansh PERRL. EOMI. CN: no focal findings. Muscle tone: normal. Muscle strength: 5/5 DTR: 1+ Plantar reflex: flexor Gait: Apraxic, needs maximum assistance Sensory exam: no abnormal findings. No cerebellar signs elicited. Review of Relevant I have reviewed the following items curly (where applicable) has been applied. Labs Laboratory Tests Test 11/18/20 06:30 White Blood Count 3.4 x10^3/uL (4.0-11.0) Red Blood Count 3.45 x10^6/uL (3.50-5.40) Hemoglobin 11.3 g/dL (12.0-15.5) Hematocrit 33.1 % (36.0-47.0) Mean Corpuscular Volume 96 fL (79-100) Mean Corpuscular Hemoglobin 33 pg (25-35) Mean Corpuscular Hemoglobin Concent 34 g/dL (31-37) Red Cell Distribution Width 13.2 % (11.5-14.5) Platelet Count 193 x10^3/uL (140-400) Neutrophils (%) (Auto) 55 % (31-73) Lymphocytes (%) (Auto) 31 % (24-48) Monocytes (%) (Auto) 8 % (0-9) Eosinophils (%) (Auto) 6 % (0-3) Basophils (%) (Auto) 0 % (0-3) Neutrophils # (Auto) 1.9 x10^3/uL (1.8-7.7) Lymphocytes # (Auto) 1.0 x10^3/uL (1.0-4.8) Monocytes # (Auto) 0.3 x10^3/uL (0.0-1.1) Eosinophils # (Auto) 0.2 x10^3/uL (0.0-0.7) Basophils # (Auto) 0.0 x10^3/uL (0.0-0.2) Sodium Level 146 mmol/L (136-145) Potassium Level 3.5 mmol/L (3.5-5.1) Chloride Level 113 mmol/L (98-107) Carbon Dioxide Level 24 mmol/L (21-32) Anion Gap 9 (6-14) Blood Urea Nitrogen 12 mg/dL (7-20) Creatinine 0.7 mg/dL (0.6-1.0) Estimated GFR (Cockcroft-Gault) 80.9 Glucose Level 114 mg/dL (70-99) Calcium Level 8.2 mg/dL (8.5-10.1) Medications Current Medications Sodium Chloride 1,000 ml @ 1,000 mls/hr 1X ONCE IV Last administered on 11/15/20at 12:14; Start 11/15/20 at 11:45; Stop 11/15/20 at 12:44; Status DC Ondansetron HCl (Zofran) 4 mg PRN Q8HRS PRN IV NAUSEA/VOMITING; Start 11/15/20 at 16:00; Stop 11/16/20 at 15:59; Status DC Sodium Chloride 1,000 ml @ 100 mls/hr 1X ONCE IV Last administered on 11/15/20at 16:17; Start 11/15/20 at 16:00; Stop 11/16/20 at 01:59; Status DC Lorazepam (Ativan Inj) 0.5 mg PRN Q6HRS PRN IVP ANXIETY / AGITATION Last administered on 11/19/20at 01:55; Start 11/15/20 at 16:00 Potassium Chloride (Klor-Con) 40 meq 1X ONCE PO Last administered on 11/15/20at 16:29; Start 11/15/20 at 16:30; Stop 11/15/20 at 16:31; Status DC Sennosides (Senna) 17.2 mg PRN BID PRN PO CONSTIPATION Last administered on 11/17/20at 10:41; Start 11/15/20 at 17:45 Docusate Sodium (Colace) 100 mg PRN DAILY PRN PO HARD STOOLS Last administered on 11/17/20at 10:41; Start 11/15/20 at 17:45 Ondansetron HCl (Zofran) 4 mg PRN Q6HRS PRN IVP NAUSEA/VOMITING; Start at 17:45 Dextrose (Dextrose 50%-Water Syringe) 12.5 gm PRN Q15MIN PRN IV SEE COMMENTS; Start 11/15/20 at 17:45 Sodium Chloride 1,000 ml @ 100 mls/hr Q10H IV Last administered on 11/16/20at 14:42; Start 11/15/20 at 17:45; Stop 11/17/20 at 08:44; Status DC Acetaminophen (Tylenol) 650 mg PRN Q4HRS PRN PO TEMP OVER 100.4F Last administered on 11/17/20at 10:46; Start 11/15/20 at 17:45 Enoxaparin Sodium (Lovenox 30mg Syringe) 30 mg Q24H SQ Last administered on 11/16/20at 08:39; Start 11/16/20 at 09:00; Stop 11/16/20 at 13:21; Status DC Olanzapine (ZyPREXA) 15 mg QHS PO Last administered on 11/18/20at 21:33; Start 11/15/20 at 21:00 Lorazepam (Ativan) 1 mg TID PO Last administered on 11/16/20at 09:04; Start 11/15/20 at 21:00; Stop 11/16/20 at 19:12; Status DC Lorazepam (Ativan) 0.5 mg PRN Q6HRS PRN PO ANXIETY / AGITATION; Start 11/15/20 at 21:00 Enoxaparin Sodium (Lovenox 40mg Syringe) 40 mg Q24H SQ Last administered on 11/18/20at 10:48; Start 11/17/20 at 09:00 Lorazepam (Ativan) 0.5 mg TID PO Last administered on 11/18/20at 21:33; Start 11/16/20 at 21:00 Dextrose/Sodium Chloride 1,000 ml @ 100 mls/hr Q10H IV Last administered on 11/19/20at 01:30; Start 11/17/20 at 09:30 Potassium Chloride (Klor-Con) 40 meq 1X ONCE PO Last administered on 11/17/20at 10:39; Start 11/17/20 at 09:30; Stop 11/17/20 at 09:31; Status DC Levothyroxine Sodium (Synthroid) 75 mcg DAILY06 PO ; Start 11/19/20 at 06:00 Active Scripts Active Reported Dorzolamide-Timolol Eye Drops (Dorzolamide Hcl/Timolol Maleat) 10 Ml Drops 1 Drop EACHEYE BID Alprazolam 0.25 Mg Tablet 0.25 Mg PO PRN TID PRN Levothyroxine Sodium 75 Mcg Tablet 75 Mcg PO DAILYAC Hydrochlorothiazide Tablet (Hydrochlorothiazide) 12.5 Mg Tablet 25 Mg PO DAILY Olanzapine 10 Mg Tablet 15 Mg PO HS Zoloft (Sertraline Hcl) 50 Mg Tablet 75 Mg PO DAILY Carbamazepine 200 Mg Tablet 400 Mg PO HS Carbamazepine 100 Mg Cpmp.12hr 200 Mg PO DAILY Vitals/I & O Vital Sign - Last 24 Hours 11/18/20 11/18/20 11/18/20 11/18/20 11:59 15:59 19:00 20:00 Temp 98.6 98.1 97.9 98.6 98.1 97.9 Pulse 85 77 81 Resp 20 20 16 B/P (MAP) 165/79 (107) 161/77 (105) 108/60 (76) Pulse Ox 96 98 98 O2 Delivery Room Air Room Air Room Air Room Air 11/18/20 11/19/20 23:02 03:05 Temp 97.8 97.7 97.8 97.7 Pulse 69 80 Resp 16 20 B/P (MAP) 155/72 (99) 125/63 (83) Pulse Ox 98 98 O2 Delivery Room Air Room Air Justicifation of Admission Dx: Justifications for Admission: Justification of Admission Dx: N/A JEROME BYNUM MD Nov 19, 2020 08:43
[2020-11-19 09:01] LABS: BASO % 1 % (0-3); EOS # 0.2 x10^3/uL (0.0-0.7); EOS % 6 % (0-3); HEMATOCRIT 36.4 % (36.0-47.0); HEMOGLOBIN 12.5 g/dL (12.0-15.5); LYMPH # 0.9 x10^3/uL (1.0-4.8); LYMPH % 25 % (24-48); MEAN CORPUSCULAR HEMOGLOBIN 33 pg (25-35); MEAN CORPUSCULAR HGB CONC 34 g/dL (31-37); MEAN CORPUSCULAR VOLUME 95 fL (79-100); MONO # 0.2 x10^3/uL (0.0-1.1); MONO % 6 % (0-9); NEUT # 2.1 x10^3/uL (1.8-7.7); NEUT % 62 % (31-73); PLATELET COUNT 214 x10^3/uL (140-400); RED BLOOD COUNT 3.82 x10^6/uL (3.50-5.40); RED CELL DISTRIBUTION WIDTH 13.4 % (11.5-14.5); WHITE BLOOD COUNT 3.4 x10^3/uL (4.0-11.0)
[2020-11-19 09:23] LABS: CREATININE 0.8 mg/dL (0.6-1.0); GFR 69.4; POTASSIUM 3.7 mmol/L (3.5-5.1)
[2020-11-19] MEDS: LORazepam 0.5 MG TABLET PO SCH ×3 (09:51→19:39)
[2020-11-19] MEDS: LEVOTHYROXINE 75 MCG TABLET PO SCH (09:51)
[2020-11-19] MEDS: ENOXAPARIN 40 MG/0.4 ML SYRINGE. SQ SCH (09:52)
--- NOTE | 2020-11-19 09:54 | PDOC ---
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 No acute events overnight, patient is resting comfortable in bed. After discussion with patient's daughter, family would like to pursue geriatric psych. Referrals were faxed to [facility] for geriatric psych placement. Vitals/I&O Vitals/I&O: Vital Signs Date Time Temp Pulse Resp B/P (MAP) Pulse Ox O2 Delivery O2 Flow Rate FiO2 11/19/20 03:05 97.7 80 20 125/63 (83) 98 Room Air 97.7 Physical Exam General: Alert, No acute distress, Other Heart: Regular rate, No murmurs Lungs: Clear Abdomen: Soft, No tenderness Extremities: No clubbing, No cyanosis Skin: No rashes, No breakdown Labs Labs: Laboratory Tests Test 11/19/20 08:42 White Blood Count 3.4 x10^3/uL (4.0-11.0) Red Blood Count 3.82 x10^6/uL (3.50-5.40) Hemoglobin 12.5 g/dL (12.0-15.5) Hematocrit 36.4 % (36.0-47.0) Mean Corpuscular Volume 95 fL (79-100) Mean Corpuscular Hemoglobin 33 pg (25-35) Mean Corpuscular Hemoglobin Concent 34 g/dL (31-37) Red Cell Distribution Width 13.4 % (11.5-14.5) Platelet Count 214 x10^3/uL (140-400) Neutrophils (%) (Auto) 62 % (31-73) Lymphocytes (%) (Auto) 25 % (24-48) Monocytes (%) (Auto) 6 % (0-9) Eosinophils (%) (Auto) 6 % (0-3) Basophils (%) (Auto) 1 % (0-3) Neutrophils # (Auto) 2.1 x10^3/uL (1.8-7.7) Lymphocytes # (Auto) 0.9 x10^3/uL (1.0-4.8) Monocytes # (Auto) 0.2 x10^3/uL (0.0-1.1) Eosinophils # (Auto) 0.2 x10^3/uL (0.0-0.7) Basophils # (Auto) 0.0 x10^3/uL (0.0-0.2) Sodium Level 145 mmol/L (136-145) Potassium Level 3.7 mmol/L (3.5-5.1) Chloride Level 112 mmol/L (98-107) Carbon Dioxide Level 22 mmol/L (21-32) Anion Gap 11 (6-14) Blood Urea Nitrogen 8 mg/dL (7-20) Creatinine 0.8 mg/dL (0.6-1.0) Estimated GFR (Cockcroft-Gault) 69.4 Glucose Level 125 mg/dL (70-99) Calcium Level 9.0 mg/dL (8.5-10.1) Review of Systems Review of Systems: Denies all systems Assessment and Plan Assessmemt and Plan Problems Medical Problems: (1) Acute renal insufficiency Status: Acute (2) Dehydration Status: Acute (3) Hallucinations Status: Acute (4) Hypokalemia Status: Acute Comment Review of Relevant I have reviewed the following items curly (where applicable) has been applied. Justifications for Admission Other Justification Acute encephalopathy JASE JUAREZ MD Nov 19, 2020 09:54
--- NOTE | 2020-11-19 10:52 | NUR ---
SW following for discharge planning. Spoke with RN and reviewed chart. SW consulted for referral to [facility] for [facility] psychiatric placement. SW met with pt and pt's daughter again today. Patient choice of vendor form completed. Pt COVID pending. Phoned and faxed referral to Maggie at [facility]. SW following. Addendum: 11/19/20 at 1651 by DOUGIE FULLER ALINA spoke with Maggie and provided out-patient therapist contact information provided by family (Roseann Webber, ). SW waiting on accepting physician at [facility] as well as negative COVID result. Update to daughter.
[2020-11-19 11:00] VITALS: BP 140/72
[2020-11-19 15:00] VITALS: BP 155/74
[2020-11-19 19:00] VITALS: BP 156/69
[2020-11-19] MEDS: OLANZapine 5 MG TABLET PO SCH (19:40)
[2020-11-19 22:50] VITALS: BP 152/81
[2020-11-20 03:30] VITALS: BP 160/74
[2020-11-20] MEDS: LEVOTHYROXINE 75 MCG TABLET PO SCH (05:37)
[2020-11-20 07:00] VITALS: BP 154/81
[2020-11-20] MEDS: IV DEXTROSE 5 %-0.45 % NACL 1,000 ML IV SCH ×2 (07:15→07:30)
[2020-11-20] MEDS: LORazepam 0.5 MG TABLET PO SCH ×2 (07:59→15:27)
[2020-11-20] MEDS: ENOXAPARIN 40 MG/0.4 ML SYRINGE. SQ SCH (07:59)
--- NOTE | 2020-11-20 08:42 | PDOC ---
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 No acute events overnight, patient is resting comfortable in bed. After discussion with patient's daughter, family would like to pursue geriatric psych. Referrals were faxed to [facility] for geriatric psych placement. 11/20/2020 Patient seen examined at bedside. No acute events overnight. She is COVID-19 negative. Awaiting accepting physician at [facility] for geriatric psych placement, and this may happen today. Greater than 30 minutes was spent on managing the discharge this patient. Vitals/I&O Vitals/I&O: Vital Signs Date Time Temp Pulse Resp B/P (MAP) Pulse Ox O2 Delivery O2 Flow Rate FiO2 11/20/20 03:30 98.1 81 18 160/74 (102) 96 Room Air 98.1 I & O 11/19/20 11/19/20 11/20/20 15:00 23:00 07:00 Intake Total 120 ml 240 ml Output Total 900 ml Balance 120 ml -660 ml Physical Exam General: Alert, No acute distress, Other Heart: Regular rate, No murmurs Lungs: Clear Abdomen: Soft, No tenderness Extremities: No clubbing, No cyanosis Skin: No rashes, No breakdown Labs Labs: Laboratory Tests Test 11/19/20 08:42 White Blood Count 3.4 x10^3/uL (4.0-11.0) Red Blood Count 3.82 x10^6/uL (3.50-5.40) Hemoglobin 12.5 g/dL (12.0-15.5) Hematocrit 36.4 % (36.0-47.0) Mean Corpuscular Volume 95 fL (79-100) Mean Corpuscular Hemoglobin 33 pg (25-35) Mean Corpuscular Hemoglobin Concent 34 g/dL (31-37) Red Cell Distribution Width 13.4 % (11.5-14.5) Platelet Count 214 x10^3/uL (140-400) Neutrophils (%) (Auto) 62 % (31-73) Lymphocytes (%) (Auto) 25 % (24-48) Monocytes (%) (Auto) 6 % (0-9) Eosinophils (%) (Auto) 6 % (0-3) Basophils (%) (Auto) 1 % (0-3) Neutrophils # (Auto) 2.1 x10^3/uL (1.8-7.7) Lymphocytes # (Auto) 0.9 x10^3/uL (1.0-4.8) Monocytes # (Auto) 0.2 x10^3/uL (0.0-1.1) Eosinophils # (Auto) 0.2 x10^3/uL (0.0-0.7) Basophils # (Auto) 0.0 x10^3/uL (0.0-0.2) Sodium Level 145 mmol/L (136-145) Potassium Level 3.7 mmol/L (3.5-5.1) Chloride Level 112 mmol/L (98-107) Carbon Dioxide Level 22 mmol/L (21-32) Anion Gap 11 (6-14) Blood Urea Nitrogen 8 mg/dL (7-20) Creatinine 0.8 mg/dL (0.6-1.0) Estimated GFR (Cockcroft-Gault) 69.4 Glucose Level 125 mg/dL (70-99) Calcium Level 9.0 mg/dL (8.5-10.1) Assessment and Plan Assessmemt and Plan Problems Medical Problems: (1) Acute renal insufficiency Status: Acute (2) Dehydration Status: Acute (3) Hallucinations Status: Acute (4) Hypokalemia Status: Acute Comment Review of Relevant I have reviewed the following items curly (where applicable) has been applied. Justifications for Admission Other Justification Acute encephalopathy JASE JUAREZ MD Nov 20, 2020 08:42
--- NOTE | 2020-11-20 09:01 | PDOC ---
PROGRESS NOTES Date of Service DATE: 11/20/20 TIME: 08:59 Assessment Problems Medical Problems: (1) Acute renal insufficiency Status: Acute (2) Dehydration Status: Acute (3) Hallucinations Status: Acute (4) Hypokalemia Status: Acute Dementia in the setting of previous psychiatric disease Catatonic episodes. I am witnessing one this morning, son recognizes these episodes I do not think she is having stroke, neurodegenerative disease of another kind, central nervous system infection, or seizure activity. Note that she has had 2 normal head CTs in the past 2 weeks, plus normal B12, thyroid, and ammonia levels here. Plan I'll check an EEG Geriatric psychiatry such as at [facility] Eventually we can add on donepezil and Namenda, but I do not want to start these now given their side effects Discussed with patient's son Subjective none Objective Vital Signs Date Time Temp Pulse Resp B/P (MAP) Pulse Ox O2 Delivery O2 Flow Rate FiO2 11/20/20 03:30 98.1 81 18 160/74 (102) 96 Room Air 98.1 Intake and Output 11/20/20 07:00 Intake Total 360 ml Output Total 900 ml Balance -540 ml Intake Oral 360 ml Output Urine Total 900 ml # Voids 1 PHYSICAL EXAM Alert. Eyes open, not responsive, minimal trembling movements, staring PERRL. EOMI. CN: no focal findings. Muscle tone: normal. Muscle strength: Moves extremities DTR: 1+ Plantar reflex: flexor Gait: Not tested Sensory exam: no abnormal findings. No cerebellar signs elicited. Review of Relevant I have reviewed the following items curly (where applicable) has been applied. Labs Laboratory Tests Test 11/19/20 08:42 White Blood Count 3.4 x10^3/uL (4.0-11.0) Red Blood Count 3.82 x10^6/uL (3.50-5.40) Hemoglobin 12.5 g/dL (12.0-15.5) Hematocrit 36.4 % (36.0-47.0) Mean Corpuscular Volume 95 fL (79-100) Mean Corpuscular Hemoglobin 33 pg (25-35) Mean Corpuscular Hemoglobin Concent 34 g/dL (31-37) Red Cell Distribution Width 13.4 % (11.5-14.5) Platelet Count 214 x10^3/uL (140-400) Neutrophils (%) (Auto) 62 % (31-73) Lymphocytes (%) (Auto) 25 % (24-48) Monocytes (%) (Auto) 6 % (0-9) Eosinophils (%) (Auto) 6 % (0-3) Basophils (%) (Auto) 1 % (0-3) Neutrophils # (Auto) 2.1 x10^3/uL (1.8-7.7) Lymphocytes # (Auto) 0.9 x10^3/uL (1.0-4.8) Monocytes # (Auto) 0.2 x10^3/uL (0.0-1.1) Eosinophils # (Auto) 0.2 x10^3/uL (0.0-0.7) Basophils # (Auto) 0.0 x10^3/uL (0.0-0.2) Sodium Level 145 mmol/L (136-145) Potassium Level 3.7 mmol/L (3.5-5.1) Chloride Level 112 mmol/L (98-107) Carbon Dioxide Level 22 mmol/L (21-32) Anion Gap 11 (6-14) Blood Urea Nitrogen 8 mg/dL (7-20) Creatinine 0.8 mg/dL (0.6-1.0) Estimated GFR (Cockcroft-Gault) 69.4 Glucose Level 125 mg/dL (70-99) Calcium Level 9.0 mg/dL (8.5-10.1) Medications Current Medications Sodium Chloride 1,000 ml @ 1,000 mls/hr 1X ONCE IV Last administered on 11/15/20at 12:14; Start 11/15/20 at 11:45; Stop 11/15/20 at 12:44; Status DC Ondansetron HCl (Zofran) 4 mg PRN Q8HRS PRN IV NAUSEA/VOMITING; Start 11/15/20 at 16:00; Stop 11/16/20 at 15:59; Status DC Sodium Chloride 1,000 ml @ 100 mls/hr 1X ONCE IV Last administered on 11/15/20at 16:17; Start 11/15/20 at 16:00; Stop 11/16/20 at 01:59; Status DC Lorazepam (Ativan Inj) 0.5 mg PRN Q6HRS PRN IVP ANXIETY / AGITATION Last administered on 11/19/20at 01:55; Start 11/15/20 at 16:00 Potassium Chloride (Klor-Con) 40 meq 1X ONCE PO Last administered on 11/15/20at 16:29; Start 11/15/20 at 16:30; Stop 11/15/20 at 16:31; Status DC Sennosides (Senna) 17.2 mg PRN BID PRN PO CONSTIPATION Last administered on 11/17/20at 10:41; Start 11/15/20 at 17:45 Docusate Sodium (Colace) 100 mg PRN DAILY PRN PO HARD STOOLS Last administered on 11/17/20at 10:41; Start 11/15/20 at 17:45 Ondansetron HCl (Zofran) 4 mg PRN Q6HRS PRN IVP NAUSEA/VOMITING; Start 11/15/20 at 17:45 Dextrose (Dextrose 50%-Water Syringe) 12.5 gm PRN Q15MIN PRN IV SEE COMMENTS; Start 11/15/20 at 17:45 Sodium Chloride 1,000 ml @ 100 mls/hr Q10H IV Last administered on 11/16/20at 14:42; Start 11/15/20 at 17:45; Stop 11/17/20 at 08:44; Status DC Acetaminophen (Tylenol) 650 mg PRN Q4HRS PRN PO TEMP OVER 100.4F Last administered on 11/17/20at 10:46; Start 11/15/20 at 17:45 Enoxaparin Sodium (Lovenox 30mg Syringe) 30 mg Q24H SQ Last administered on 11/16/20at 08:39; Start 11/16/20 at 09:00; Stop 11/16/20 at 13:21; Status DC Olanzapine (ZyPREXA) 15 mg QHS PO Last administered on 11/19/20at 19:40; Start 11/15/20 at 21:00 Lorazepam (Ativan) 1 mg TID PO Last administered on 11/16/20at 09:04; Start 11/15/20 at 21:00; Stop 11/16/20 at 19:12; Status DC Lorazepam (Ativan) 0.5 mg PRN Q6HRS PRN PO ANXIETY / AGITATION; Start 11/15/20 at 21:00 Enoxaparin Sodium (Lovenox 40mg Syringe) 40 mg Q24H SQ Last administered on 11/20/20at 07:59; Start 11/17/20 at 09:00 Lorazepam (Ativan) 0.5 mg TID PO Last administered on 11/20/20at 07:59; Start 11/16/20 at 21:00 Dextrose/Sodium Chloride 1,000 ml @ 100 mls/hr Q10H IV Last administered on 11/19/20at 01:30; Start 11/17/20 at 09:30 Potassium Chloride (Klor-Con) 40 meq 1X ONCE PO Last administered on 11/17/20at 10:39; Start 11/17/20 at 09:30; Stop 11/17/20 at 09:31; Status DC Levothyroxine Sodium (Synthroid) 75 mcg DAILY06 PO Last administered on 11/20/20at 05:37; Start 11/19/20 at 06:00 Active Scripts Active Reported Dorzolamide-Timolol Eye Drops (Dorzolamide Hcl/Timolol Maleat) 10 Ml Drops 1 Drop EACHEYE BID Alprazolam 0.25 Mg Tablet 0.25 Mg PO PRN TID PRN Levothyroxine Sodium 75 Mcg Tablet 75 Mcg PO DAILYAC Hydrochlorothiazide Tablet (Hydrochlorothiazide) 12.5 Mg Tablet 25 Mg PO DAILY Olanzapine 10 Mg Tablet 15 Mg PO HS Zoloft (Sertraline Hcl) 50 Mg Tablet 75 Mg PO DAILY Carbamazepine 200 Mg Tablet 400 Mg PO HS Carbamazepine 100 Mg Cpmp.12hr 200 Mg PO DAILY Vitals/I & O Vital Sign - Last 24 Hours 11/19/20 11/19/20 11/19/20 11/19/20 11:00 15:00 19:00 20:00 Temp 97.4 97.9 97.8 97.4 97.9 97.8 Pulse 78 75 80 Resp 16 16 18 B/P (MAP) 140/72 (94) 155/74 (101) 156/69 (98) Pulse Ox 97 98 96 O2 Delivery Room Air Room Air Room Air Room Air 11/19/20 11/20/20 22:50 03:30 Temp 97.8 98.1 97.8 98.1 Pulse 80 81 Resp 18 18 B/P (MAP) 152/81 (104) 160/74 (102) Pulse Ox 97 96 O2 Delivery Room Air Room Air Intake and Output 0 11/19/20 11/19/20 11/20/20 15:00 23:00 07:00 Intake Total 120 ml 240 ml Output Total 900 ml Balance 120 ml -660 ml Justicifation of Admission Dx: Justifications for Admission: Justification of Admission Dx: N/A JEROME BYNUM MD Nov 20, 2020 09:01
[2020-11-20 09:06] LABS: BASO % 1 % (0-3); EOS # 0.2 x10^3/uL (0.0-0.7); EOS % 5 % (0-3); HEMOGLOBIN 13.5 g/dL (12.0-15.5); LYMPH % 23 % (24-48); MEAN CORPUSCULAR HEMOGLOBIN 32 pg (25-35); MEAN CORPUSCULAR HGB CONC 34 g/dL (31-37); MEAN CORPUSCULAR VOLUME 96 fL (79-100); MONO # 0.3 x10^3/uL (0.0-1.1); MONO % 8 % (0-9); NEUT # 2.9 x10^3/uL (1.8-7.7); NEUT % 64 % (31-73); PLATELET COUNT 264 x10^3/uL (140-400); RED BLOOD COUNT 4.16 x10^6/uL (3.50-5.40); RED CELL DISTRIBUTION WIDTH 13.4 % (11.5-14.5); WHITE BLOOD COUNT 4.4 x10^3/uL (4.0-11.0)
[2020-11-20 09:22] LABS: CREATININE 0.9 mg/dL (0.6-1.0); GFR 60.6; POTASSIUM 3.5 mmol/L (3.5-5.1)
--- NOTE | 2020-11-20 10:24 | NUR ---
ALINA following for discharge planning. Spoke with RN and reviewed chart. ALINA held a family meeting this morning with pt, pt's spouse and pt's adult children. ALINA obtained copy of POA for HC and faxed this with the negative COVID result that came back today to Maggie at [facility]. Dr. Philip has accepted this patient for admission to [facility]. ALINA awaiting final discharge orders. Packet of clinicals ready to be sent with patient. RN to call report. ALINA arranged for 1530 transportation via [employer] as [employer] transportation does not run that late and that is the time that pt can be accepted per Maggie. Pt and family agreeable to this discharge plan. [facility] [address] [place] [phone] (phone) [phone] (fax) Addendum: 11/20/20 at 1119 by DOUGIE FULLER Discharged orders including script for Carla phoned and faxed to [facility]. No additional SW needs at this time.
[2020-11-20] MEDS ORDERED: LORA0.5T96 PO (10:52)
--- NOTE | 2020-11-20 11:02 | PDOC3 ---
Discharge Summary Visit Information Date of Admission: Nov 15, 2020 Date of Discharge: Nov 20, 2020 Final Diagnosis Problems Medical Problems: (1) Acute renal insufficiency Status: Acute (2) Dehydration Status: Acute (3) Hallucinations Status: Acute (4) Hypokalemia Status: Acute Brief Hospital Course Allergies Allergies Coded Allergies Type Severity Reaction Last Updated Verified No Known Drug Allergies 04/28/19 No Vital Signs Vital Signs Date Time Temp Pulse Resp B/P (MAP) Pulse Ox O2 Delivery O2 Flow Rate FiO2 11/20/20 07:00 98.0 106 18 154/81 (105) 98 Room Air 98.0 Lab Results Laboratory Tests Test 11/19/20 08:42 11/20/20 08:20 White Blood Count 3.4 x10^3/uL (4.0-11.0) 4.4 x10^3/uL (4.0-11.0) Red Blood Count 3.82 x10^6/uL (3.50-5.40) 4.16 x10^6/uL (3.50-5.40) Hemoglobin 12.5 g/dL (12.0-15.5) 13.5 g/dL (12.0-15.5) Hematocrit 36.4 % (36.0-47.0) 40.0 % (36.0-47.0) Mean Corpuscular Volume 95 fL (79-100) 96 fL (79-100) Mean Corpuscular Hemoglobin 33 pg (25-35) 32 pg (25-35) Mean Corpuscular Hemoglobin Concent 34 g/dL (31-37) 34 g/dL (31-37) Red Cell Distribution Width 13.4 % (11.5-14.5) 13.4 % (11.5-14.5) Platelet Count 214 x10^3/uL (140-400) 264 x10^3/uL (140-400) Neutrophils (%) (Auto) 62 % (31-73) 64 % (31-73) Lymphocytes (%) (Auto) 25 % (24-48) 23 % (24-48) Monocytes (%) (Auto) 6 % (0-9) 8 % (0-9) Eosinophils (%) (Auto) 6 % (0-3) 5 % (0-3) Basophils (%) (Auto) 1 % (0-3) 1 % (0-3) Neutrophils # (Auto) 2.1 x10^3/uL (1.8-7.7) 2.9 x10^3/uL (1.8-7.7) Lymphocytes # (Auto) 0.9 x10^3/uL (1.0-4.8) 1.0 x10^3/uL (1.0-4.8) Monocytes # (Auto) 0.2 x10^3/uL (0.0-1.1) 0.3 x10^3/uL (0.0-1.1) Eosinophils # (Auto) 0.2 x10^3/uL (0.0-0.7) 0.2 x10^3/uL (0.0-0.7) Basophils # (Auto) 0.0 x10^3/uL (0.0-0.2) 0.0 x10^3/uL (0.0-0.2) Sodium Level 145 mmol/L (136-145) 145 mmol/L (136-145) Potassium Level 3.7 mmol/L (3.5-5.1) 3.5 mmol/L (3.5-5.1) Chloride Level 112 mmol/L (98-107) 111 mmol/L (98-107) Carbon Dioxide Level 22 mmol/L (21-32) 20 mmol/L (21-32) Anion Gap 11 (6-14) 14 (6-14) Blood Urea Nitrogen 8 mg/dL (7-20) 7 mg/dL (7-20) Creatinine 0.8 mg/dL (0.6-1.0) 0.9 mg/dL (0.6-1.0) Estimated GFR (Cockcroft-Gault) 69.4 60.6 Glucose Level 125 mg/dL (70-99) 110 mg/dL (70-99) Calcium Level 9.0 mg/dL (8.5-10.1) 9.0 mg/dL (8.5-10.1) Laboratory Tests Test 11/20/20 08:20 White Blood Count 4.4 x10^3/uL (4.0-11.0) Red Blood Count 4.16 x10^6/uL (3.50-5.40) Hemoglobin 13.5 g/dL (12.0-15.5) Hematocrit 40.0 % (36.0-47.0) Mean Corpuscular Volume 96 fL (79-100) Mean Corpuscular Hemoglobin 32 pg (25-35) Mean Corpuscular Hemoglobin Concent 34 g/dL (31-37) Red Cell Distribution Width 13.4 % (11.5-14.5) Platelet Count 264 x10^3/uL (140-400) Neutrophils (%) (Auto) 64 % (31-73) Lymphocytes (%) (Auto) 23 % (24-48) Monocytes (%) (Auto) 8 % (0-9) Eosinophils (%) (Auto) 5 % (0-3) Basophils (%) (Auto) 1 % (0-3) Neutrophils # (Auto) 2.9 x10^3/uL (1.8-7.7) Lymphocytes # (Auto) 1.0 x10^3/uL (1.0-4.8) Monocytes # (Auto) 0.3 x10^3/uL (0.0-1.1) Eosinophils # (Auto) 0.2 x10^3/uL (0.0-0.7) Basophils # (Auto) 0.0 x10^3/uL (0.0-0.2) Sodium Level 145 mmol/L (136-145) Potassium Level 3.5 mmol/L (3.5-5.1) Chloride Level 111 mmol/L (98-107) Carbon Dioxide Level 20 mmol/L (21-32) Anion Gap 14 (6-14) Blood Urea Nitrogen 7 mg/dL (7-20) Creatinine 0.9 mg/dL (0.6-1.0) Estimated GFR (Cockcroft-Gault) 60.6 Glucose Level 110 mg/dL (70-99) Calcium Level 9.0 mg/dL (8.5-10.1) Brief Hospital Course Ms. Bennett is a 80 old female who presented with Altered mental status likely to delirium, unspecified catatonia, neurodegenerative disorder including dementia. Consultations were placed to psychiatry and neurology. She underwent some medication adjustment, per psychiatry. Neurology recommended eventually adding donepezil and Namenda, but did not want to start these at present time given their side effects. Patient was accepted to Geriatric psychiatry at [facility]. Discharge Information Condition at Discharge: Stable Disposition/Orders: D/C to Another Facility Scheduled Dorzolamide Hcl/Timolol Maleat (Dorzolamide-Timolol Eye Drops) 10 Ml Drops, 1 DROP EACHEYE BID for gluacoma, #10 Ref 0 (Reported) Entered as Reported by: SHAKIR FORD on 11/15/201957 Last Taken: Unknown Dose on 11/14/20 Last Action: New Order on 11/15/201957 by SHAKIR FORD Hydrochlorothiazide (Hydrochlorothiazide Tablet) 12.5 Mg Tablet, 25 MG PO DAILY for DIURETIC, Ref 0 (Reported) Entered as Reported by: SHAKIR FORD on 11/15/201957 Last Taken: Unknown Dose on 11/14/20 Last Action: New Order on 11/15/201957 by SHAKIR FORD Levothyroxine Sodium (Levothyroxine Sodium) 75 Mcg Tablet, 75 MCG PO DAILYAC for THYROID SUPPLEMENT, #30 Ref 0 (Reported) Entered as Reported by: SHAKIR FORD on 11/15/201957 Last Taken: Unknown Dose on 11/14/20 Last Action: New Order on 11/15/201957 by SHAKIR FORD Lorazepam (Ativan) 0.5 Mg Tablet, 0.5 MG PO TID for Agitation, #30 Prescribed by: JASE JUAREZ MD on 11/20/202 Olanzapine (Olanzapine) 10 Mg Tablet, 15 MG PO HS for psych med, (Reported) Entered as Reported by: SHAKIR FORD on 11/15/201957 Last Taken: Unknown Dose on 11/14/20 Last Action: Converted on 11/15/202051 by SHAKIR FORD Discontinued Medications Alprazolam (Alprazolam) 0.25 Mg Tablet, 0.25 MG PO PRN TID PRN for ANXIETY / AGITATION, Ref 0 (Reported) Entered as Reported by: SHAKIR FORD on 11/15/201957 Last Taken: Unknown Dose on 11/14/20 Last Action: New Order on 11/15/201957 by SHAKIR FORD Carbamazepine (Carbamazepine) 100 Mg Cpmp.12hr, 200 MG PO DAILY for psych med, (Reported) Entered as Reported by: SHAKIR FORD on 11/15/201953 Last Taken: Unknown Dose on 11/14/20 Last Action: New Order on 11/15/201953 by SHAKIR FORD Carbamazepine (Carbamazepine) 200 Mg Tablet, 400 MG PO HS for psych med, (Reported) Entered as Reported by: SHAKIR FORD on 11/15/201953 Last Taken: Unknown Dose on 11/14/20 Last Action: New Order on 11/15/201953 by SHAKIR FORD Sertraline Hcl (Zoloft) 50 Mg Tablet, 75 MG PO DAILY for ANTI-DEPRESSANT, Ref 0 (Reported) Entered as Reported by: SHAKIR FORD on 11/15/201953 Last Taken: Unknown Dose on 11/14/20 Last Action: New Order on 11/15/201953 by SHAKIR FORD Justicifation of Admission Dx: Justifications for Admission: Justification of Admission Dx: N/A JASE JUAREZ MD Nov 20, 2020 11:02
--- NOTE | 2020-11-20 12:15 | NUR ---
Patient appetite sig better at this time, eating lunch well on own (100%0 with daughter in chair next to her (pt up in chair)
[2020-11-20 15:00] VITALS: BP 155/69
--- NOTE | 2020-11-21 08:45 | EEG ---
DATE OF SERVICE: 11/20/2020 ELECTROENCEPHALOGRAM REPORT EEG NUMBER: [id number]. OBJECTIVE: The patient is a 80-year-old female with episodes of catatonia. DESCRIPTION: This is a digital study. Electrodes are placed according to the international 10-20 system. Bipolar and referential montages are available. Activation procedures typically include hyperventilation and intermittent photic stimulation. INTERPRETATION: The waking background consists of 9-10 Hz, 50-100 microvolt activity, symmetrically distributed over parietooccipital regions and reactive to eye opening. Hyperventilation and intermittent photic stimulation are noncontributory. Sleep is not achieved. IMPRESSION: This electroencephalogram with the patient awake only is within normal limits. There is no focal, paroxysmal, or epileptiform activity. Thank you for letting us help with the patient's care. JEROME BYNUM MD DR: BRIELLE/heike JOB#: [id number] / [id number]
== END 2020-11-20 16:00 | DRG 70 ==
LOC: ER 10:46 → 5 NORTH 15:06
PROVIDERS: ADMIT Internal Medicine; ATTEND Internal Medicine
PROC: 4A10X4Z Monitoring of Central Nervous Electrical Activity, External Approach (ICD-10-PCS; principal; 2020-11-20)
DX: G93.40 Encephalopathy, unspecified (principal); N17.0 Acute kidney failure with tubular necrosis; F20.2 Catatonic schizophrenia; F05 Delirium due to known physiological condition; R41.89 Other symptoms and signs involving cognitive functions and awareness; Z20.828 Contact with and (suspected) exposure to other viral communicable diseases; R25.8 Other abnormal involuntary movements; E03.9 Hypothyroidism, unspecified; F31.9 Bipolar disorder, unspecified; F41.9 Anxiety disorder, unspecified; M79.7 Fibromyalgia; H40.9 Unspecified glaucoma; E87.6 Hypokalemia; F03.90 Unspecified dementia, unspecified severity, without behavioral disturbance, psychotic disturbance, mood disturbance, and anxiety; D64.9 Anemia, unspecified; D72.819 Decreased white blood cell count, unspecified; E86.0 Dehydration; Z80.1 Family history of malignant neoplasm of trachea, bronchus and lung; Z86.72 Personal history of thrombophlebitis; Z82.0 Family history of epilepsy and other diseases of the nervous system; Z79.899 Other long term (current) drug therapy; Z90.49 Acquired absence of other specified parts of digestive tract; Z98.51 Tubal ligation status
CPT/HCPCS: 36415; 70450; 71045; 74018; 80048; 80053; 80307; 80329; 81001; 82140; 82553; 82607; 83605; 83735; 84100; 84443; 84484; 85025; 93005; 95816; G0480; J1650; J2060; J7030; J7042; U0003; 97116-GP; 97530-GO; 97530-GP; 97535-GO; G0378

== ENCOUNTER → 2021-07-17 | Outpatient (CLI) | payer MEDICARE ==
[~2021-07-17] MED LIST changes: +ALPR0.254 PO; +CARB100C4 PO; +CARB200T4 PO; -CONTRAST GIVEN. MC PRN; +DORZ10DR7 EACHEYE; +HYDR12.58 PO; -IOHEXOL 300 MG/ML 50 ML VIAL. PO ONE; +LEVO75TA5 PO; +LORA0.5T96 PO; +OLAN10TA69 PO; +SERT50TA PO
--- NOTE | 2021-07-17 13:47 | KCIC ---
EXAM: ULTRASOUND PELVIS INDICATION: PELVIC PAIN LOWER ABD PAIN. Postmenopausal. COMPARISON: None available. TECHNIQUE: Transabdominal sonography was performed. FINDINGS: The uterus measures 7.5 x 3.5 x 2.1 cm. The endometrium measures 0.2 cm. There is no focal myometria l abnormality The right ovary measures 1.5 x 1.2 x 1.4 cm. The left ovary measures 1.9 x 1.6 x 0.8 cm. Flow seen t o both ovaries. There is no free fluid. IMPRESSION: Uterus is mildly atrophic. No dominant adnexal mass. Flow seen to both ovaries without evidence for t orsion. Electronically signed by: Neeraj Salazar MD (07/17/2021 1:45 PM) [id number]
--- NOTE | 2021-07-17 14:10 | KCIC ---
EXAM: ULTRASOUND ABDOMEN COMPLETE CLINICAL HISTORY: Reason: PELVIC PAIN LOWER ABD PAIN / Spl. Instructions: / History: COMPARISON: None available. TECHNIQUE: Ultrasound of the upper abdomen was performed. FINDINGS: The head and visualized body of the pancreas are unremarkable. The tail is obscured by intestinal ga s.. The liver measures 12.9 centimeters in length in the right mid clavicular line. The hepatic margin i s smooth and the hepatic echogenicity is normal. There are no focal liver lesions. Flow seen within the portal veins. There has been a cholecystectomy. The common bile duct measures 0.5 cm. The spleen measures 12.7 cm, borderline enlarged.. The right kidney measures 7.6 cm in bipolar length. Mild renal cortical thinning. 1 cm cyst is seen a t the interpolar region right kidney.No hydronephrosis. The left kidney measures 9.9 cm in bipolar length. Normal renal cortical echotexture and thickness. N o focal renal lesion, hydronephrosis or shadowing renal calculus. Visualized portions of the abdominal aorta and inferior vena cava are unremarkable. There is no free fluid in the upper abdomen. IMPRESSION: 1. Atrophic appearance of the right kidney. 2. Simple appearing right renal cyst. 3. There has been a cholecystectomy. Electronically signed by: Neeraj Salazar MD (07/17/2021 2:08 PM) [id number]
== END ==
LOC: KCIC US 08:37
PROVIDERS: ATTEND Family Medicine
DX: N85.8 Other specified noninflammatory disorders of uterus (principal); R16.1 Splenomegaly, not elsewhere classified; F31.89 Other bipolar disorder; Z90.49 Acquired absence of other specified parts of digestive tract
CPT/HCPCS: 76700; 76856